=== PATIENT | male | born 1930 | race African-American/Black ===

== ENCOUNTER 2019-01-15 12:20 | Inpatient (IN) | payer OTHER ==
[2019-01-15 13:42] LABS: BASO % 0.8 % (0-2.0); EOS % 0.4 % (0-4.5); HEMATOCRIT 40.2 % (35.4-49); HEMOGLOBIN 13.5 GM/dL (11.7-16.9); LYMPH % 25.1 % (8-40); MCH 27.4 pg (25.7-33.7); MCHC 33.6 g/dl (32.0-35.9); MEAN CELL VOLUME 81.7 fl (80-96); MEAN PLT VOLUME 8.6 fl (7.5-11.1); MONO % 9.1 % (3.8-10.2); NEUT % 64.6 % (42.8-82.8); PLATELET COUNT 132 K/MM3 (134-434); RBC 4.92 M/mm3 (4.00-5.60); WHITE BLOOD COUNT 2.7 K/mm3 (4.0-10.0)
[2019-01-15 13:58] LABS: INR 1.06 (0.83-1.09); PROTHROMBIN TIME (PATIENT) 12.5 SEC (9.7-13.0)
[2019-01-15 14:01] LABS: ACTIVATED PTT 31.8 SECONDS (25.2-36.5)
[2019-01-15 14:15] LABS: ALBUMIN 3.6 g/dl (3.4-5.0); ALK PHOS 92 U/L (45-117); ANION GAP 6 MMOL/L (8-16); BILIRUBIN,TOTAL 0.4 mg/dL (0.2-1); BLOOD UREA NITROGEN 16.3 mg/dL (7-18); CALCIUM 8.5 mg/dL (8.5-10.1); CHLORIDE 105 mmol/L (98-107); CO2 29 mmol/L (21-32); CREATININE 1.4 mg/dL (0.55-1.3); GLUCOSE,RANDOM 78 mg/dL (74-106); MAGNESIUM 2.4 mg/dL (1.8-2.4); POTASSIUM 3.7 mmol/L (3.5-5.1); SGOT/AST 13 U/L (15-37); SGPT/ALT 15 U/L (13-61); SODIUM 141 mmol/L (136-145); TOT PROT 6.8 g/dl (6.4-8.2)
--- NOTE | 2019-01-15 14:45 | PDOC ---
History of Present Illness - General Chief Complaint: Pain Stated Complaint: ABD PAIN Time Seen by Provider: 01/15/19 13:20 History Source: Patient, Family (niece) Exam Limitations: No Limitations - History of Present Illness Initial Comments: 01/15/19 14:40 88 yo male pmh of HTN and dementia presents to the ED with 1 day of right sided abdominal pain. Pts niece is present and provides HPI and hx due to dementia. States pt had a complaint of warmth and R sided abdominal pain with deformity ( R abdomen enlarged) starting yesterday, described as weight, intermittent without know aggravating or relieving factors. States pt had an episode of loose stools 2 days ago, otherwise normal urinary and bowel habits. Pt is able to eat and drink as normal. Denies sick contacts, recent travel, recent illness , N/V, CP, SOB, back pain Past History - Past Medical History Allergies/Adverse Reactions: Allergies Allergy/AdvReac Type Severity Reaction Status Date / Time No Known Allergies Allergy Verified 01/15/19 12:41 Home Medications: Ambulatory Orders Amlodipine Besylate 10 mg PO DAILY 01/15/19 Clonidine HCl 0.1 mg PO TID 01/15/19 Docusate Sodium [Colace -] 100 mg PO BID 01/15/19 Donepezil HCl [Aricept -] 5 mg PO DAILY 01/15/19 Lisinopril [Prinivil -] 40 mg PO DAILY 01/15/19 Omeprazole 40 mg PO DAILY 01/15/19 COPD: No Dementia: Yes HTN: Yes Other medical history: abd hernia - Psycho Social/Smoking Cessation Hx Smoking History: Never smoked Have you smoked in the past 12 months: No Information on smoking cessation initiated: No Hx Alcohol Use: No Drug/Substance Use Hx: No Review of Systems - Review of Systems Constitutional: No: Chills, Fever Respiratory: No: Shortness of Breath Cardiac (ROS): No: Chest Pain, Edema ABD/GI: Yes: Abdominal Distended (on the right). No: Constipated, Diarrhea, Nausea, Vomiting : No: Burning, Dysuria, Flank Pain, Hematuria Integumentary: No: Change in Color Neurological: No: Numbness, Paresthesia, Weakness *Physical Exam - Vital Signs Last Vital Signs Temp Pulse Resp BP Pulse Ox 97.8 F 72 18 136/72 100 01/15/19 12:34 01/15/19 13:17 01/15/19 13:17 01/15/19 13:17 01/15/19 13:17 - Physical Exam General Appearance: Yes: Nourished, Appropriately Dressed. No: Apparent Distress HEENT: positive: EOMI Neck: positive: Supple. negative: Carotid bruit Respiratory/Chest: positive: Lungs Clear, Normal Breath Sounds. negative: Respiratory Distress, Accessory Muscle Use, Crackles, Rales, Rhonchi, Stridor, Wheezing Cardiovascular: positive: Regular Rhythm, Regular Rate, S1, S2. negative: Edema , JVD, Murmur Vascular Pulses: Dorsalis-Pedis (R): 4+, Doralis-Pedis (L): 4+ Gastrointestinal/Abdominal: positive: Flat, Soft, Distended (right side), Tenderness (RUQ). negative: Pulsatile Mass, Protuberent, Guarding, Rebound Musculoskeletal: negative: CVA Tenderness Extremity: positive: Normal Capillary Refill, Normal Inspection, Normal Range of Motion Integumentary: positive: Normal Color, Dry, Warm Neurologic: positive: Fully Oriented, Alert, Normal Mood/Affect, Normal Response ED Treatment Course - LABORATORY CBC & Chemistry Diagram: 01/16/19 07:30 01/16/19 07:30 - ADDITIONAL ORDERS Additional order review: Laboratory Results 01/15/19 01/15/19 01/15/19 13:20 13:20 13:20 PT with INR 12.50 INR 1.06 PTT (Actin FS) 31.8 Sodium 141 Potassium 3.7 Chloride 105 Carbon Dioxide 29 Anion Gap 6 L BUN 16.3 Creatinine 1.4 H Est GFR (CKD-EPI)AfAm 51.26 Est GFR (CKD-EPI)NonAf 44.23 Random Glucose 78 Lactic Acid Calcium 8.5 Magnesium 2.4 Total Bilirubin 0.4 AST 13 L ALT 15 Alkaline Phosphatase 92 Troponin I < 0.02 Total Protein 6.8 Albumin 3.6 Lipase 98 01/15/19 13:20 PT with INR INR PTT (Actin FS) Sodium Potassium Chloride Carbon Dioxide Anion Gap BUN Creatinine Est GFR (CKD-EPI)AfAm Est GFR (CKD-EPI)NonAf Random Glucose Lactic Acid 1.4 Calcium Magnesium Total Bilirubin AST ALT Alkaline Phosphatase Troponin I Total Protein Albumin Lipase 01/15/19 13:20 RBC 4.92 MCV 81.7 MCHC 33.6 RDW 14.0 MPV 8.6 Neutrophils % 64.6 Lymphocytes % 25.1 Monocytes % 9.1 Eosinophils % 0.4 Basophils % 0.8 Medical Decision Making - Medical Decision Making 01/15/19 19:34 88 yo male pmh of HTN and dementia presents to the ED with 1 day of right sided abdominal pain. Pts niece is present and provides HPI and hx due to dementia. States pt had a complaint of warmth and R sided abdominal pain with deformity ( R abdomen enlarged) starting yesterday, described as weight, intermittent without know aggravating or relieving factors. States pt had an episode of loose stools 2 days ago, otherwise normal urinary and bowel habits. Pt is able to eat and drink as normal. Denies sick contacts, recent travel, recent illness , N/V, CP, SOB, back pain Labs WNL DDX INLT: hernia, cholecystitis, hepatitis, gastric ulcer, diverticulitis CT shows hydrops gallbladder. GI consulted Dr. catrachita isaaco in the am and then determine if MRCP is necessary Pt accepted for admission Discharge - Discharge Information Problems reviewed: Yes Clinical Impression/Diagnosis: Dilated gallbladder Condition: Stable - Admission Yes - Follow up/Referral - Patient Discharge Instructions - Post Discharge Activity
[2019-01-15 16:31] LABS: URINE APPEARANCE CLEAR; URINE BILIRUBIN NEGATIVE (NEGATIVE); URINE COLOR YELLOW; URINE GLUCOSE (UA) NEGATIVE (NEGATIVE); URINE KETONE NEGATIVE (NEGATIVE); URINE LEUK ESTERASE NEGATIVE (NEGATIVE); URINE NITRITE NEGATIVE (NEGATIVE); URINE PROTEIN NEGATIVE (NEGATIVE)
--- NOTE | 2019-01-15 16:56 | PDOC ---
Documentation entered by Edilia Lerma SCRIBE, acting as scribe for Wade Kennedy MD. Wade Kenneyd MD: This documentation has been prepared by the cindyibe, Edilia Lerma SCRIBE, under my direction and personally reviewed by me in its entirety. I confirm that the documentation accurately reflects all work, treatment, procedures, and medical decision making performed by me. Attending Attestation - Resident Resident Name: Darius Shahid - ED Attending Attestation I have performed the following: I have examined & evaluated the patient, The case was reviewed & discussed with the resident, I agree w/resident's findings & plan, Exceptions are as noted - HPI HPI: 01/15/19 16:35 Patient is a 88 year old male with a significant PMH of HTN and dementia who presents to the emergency department with 1 day of right sided abdominal pain. Patient states he felt warmth, pain, and enlargement of his right abdomen. At this time, pt denies any pain, states he feels well and wants to go home. As per patients niece he had 2 episodes of loose non bloody stools 2 days ago, but a normal BM yesterday. She denies recent fevers, chills, headache, dizziness, focal weakness/numbness. She denies recent nausea, vomit, diarrhea or constipation. She denies recent dysuria, frequency, urgency or hematuria. She denies recent chest pain or shortness of breath. No treatments tried for the pain - Physicial Exam PE: 01/15/19 16:51 GENERAL: Awake, alert, and oriented to name and hospital in no acute distress. Very pleasant. EYES: PERRLA, EOMI, sclera anicteric, conjunctiva clear ENT: Nares patent, oropharynx clear without exudates. Moist mucosa NECK: Normal ROM, supple, no lymphadenopathy, JVD, or masses LUNGS: Breath sounds equal, clear to auscultation bilaterally. No wheezes, and no crackles HEART: Regular rate and rhythm, normal S1 and S2, no murmurs, rubs or gallops ABDOMEN: Soft, nontender, normoactive bowel sounds. No guarding, no rebound. No masses : No CVAT. No penile or testicular ttp, edema. EXTREMITIES: Normal range of motion, no edema. No cords, erythema, or tenderness. WWP. NEUROLOGICAL: Normal speech, cranial nerves intact, equal strength and sensation b/l SKIN: Warm, Dry, normal turgor, no rashes or lesions noted. - Medical Decision Making 01/15/19 16:53 88-year-old male presents to the emergency department with resolved right-sided abdominal pain. OTher than elevated BP (pt missed afternoon dose clonidine), vitals wnl. Pt took home dose clonidine in the ED. EKG with TWI, no previous EKG to compare. WIll check trop, but pt with no CP or SOB. Patient's exam is unremarkable, he has no abdominal tenderness to palpation. Given advanced age, will obtain labs, UA, and CT scan of the abdomen and pelvis to rule out any acute abdominal pathology. Will reassess. 01/15/19 18:53 CTAP with dilated GB and CBD MRCP recommended Pt reporting pain to RUQ Will order US, admit for further mgmt Heart Score/ECG Review #1 01/15/19 16:55 Twelve-lead EKG was performed and reviewed by me. Normal sinus rhythm, rate 71. Normal axis. No ST elevations. Inferior T wave inversions T wave inversions in V4 to V6. No previous EKG to compare.
--- NOTE | 2019-01-15 19:18 | PN ---
Teaching Attending Note Name of Resident: Kwaku Bonilla ATTENDING PHYSICIAN STATEMENT I saw and evaluated the patient. I reviewed the resident's note and discussed the case with the resident. I agree with the resident's findings and plan as documented. SUBJECTIVE: Patient is an 88 year old male with a PMH of HTN and Dementia who presents to the ER with 1 day of right sided abdominal pain. Patient states he felt warm, pain, and enlargement of his right abdomen. On arrival in the ER he denied any pain, states he feels well and wants to go home. As per patients niece he had 2 episodes of loose non bloody stools 2 days ago, but a normal BM yesterday. he denies recent fevers, chills, headache, dizziness, focal weakness/numbness. She denies recent nausea, vomiting, constipation, dysuria, frequency, urgency, hematuria, chest pain or shortness of breath. No treatments tried for the pain. Denies tobacco, alcohol or illicit drug use. FH of TIA. OBJECTIVE: Alert Vital Signs Period Temp Pulse Resp BP Sys/Garcia Pulse Ox Last 24 Hr 97.8 F 72-78 18-18 136-163/72-84 100-100 HEENT: No Jaundice, eye redness or discharge, PERRLA, EOMI. Normocephalic, atraumatic. External ears are normal and hearing is grossly intact. No nasal discharge. Neck: Supple, nontender. No palpable adenopathy or thyromegaly. No JVD Chest: Good effort. Clear to auscultation and percussion. Heart: Regular. No S3, rub or murmur Abdomen: Not distended, soft, nontender and no HSM. No rebound or guarding. Normal bowel sounds. Ext: Peripheral pulses intact. No leg edema. Skin: Warm and dry. No petechiae, rash or ecchymosis. Neuro: Alert. Oriented x3. CN 2-12 grossly intact. Sensation grossly intact in all four extremities and DTR are symmetric. Psych: Appropriate mood and affect. Good insight. Home Medications Medication Instructions Recorded Amlodipine Besylate 10 mg PO DAILY 01/15/19 Clonidine HCl 0.1 mg PO TID 01/15/19 Docusate Sodium [Colace -] 100 mg PO BID 01/15/19 Donepezil HCl [Aricept -] 5 mg PO DAILY 01/15/19 Lisinopril [Prinivil -] 40 mg PO DAILY 01/15/19 Omeprazole 40 mg PO DAILY 01/15/19 Abnormal Lab Results 01/15/19 01/15/19 13:20 13:20 WBC 2.7 L Plt Count 132 L Anion Gap 6 L Creatinine 1.4 H AST 13 L ASSESSMENT AND PLAN: 1. Chronic cholecystitis? - CT scan of the abdomen/pelvis with IV contrast showed dilated gallbladder and dilated intrahepatic bile ducts and nonobstructing left kidney stone. Patient's symptoms are chronic and there is no indication for antibiotics at this time. Will get MRCP and consult GI. EKG shows NSR and inferolateral t wave inversion - initial troponin is negative. Will repeat EKG and troponin to rule out ACS. Thrombocytopenia and leukopenia are unexplained - will repeat CBC. Will continue comprehensive care for all of patients comorbid conditions. 2. LEYDI - Cause unclear. Will hydrate gently and monitor urine output. Avoid nephrotoxic agents such as NSAIDS, aminoglycosides, contrast dyes and certain Alternative medicine products. 3. Hypertension - Restart suitable outpatient antihypertensive drugs when clinically appropriate. 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 Nonpharmacologic measures to control hypertension like weight loss , salt restriction and exercise discussed. Importance of adherence to treatment regimen and attainment of normotension emphasized. 4. DVT prophylaxis - Heparin 5000u sq tid. 5. Advance directives - Full code
[2019-01-15] MEDS ORDERED: SODIUM CHLORIDE 1,000 ML IV SCH (20:15)
[2019-01-15] MEDS ORDERED: HEPARIN NA (PORCINE) 5,000 UNITS/ML 1ML VIAL ONE (22:08)
[2019-01-15] MEDS: HEPARIN NA (PORCINE) 5,000 UNITS/ML 1ML VIAL SQ SCH (22:11)
--- NOTE | 2019-01-15 22:55 | HP ---
CHIEF COMPLAINT: Rt sided abd swelling PCP: Dr. Venus Bonilla ([phone]) HISTORY OF PRESENT ILLNESS: This is an 88 year old male with a PMH of HTN and Dementia who presents to the ER with 1 day of worsening right sided abdominal pain/distention. Hx given by the niece/aide at bedside. Pt has had a Rt sided swollen abdomen since earlier today but became "hard as a rock" and he felt warm , with pressure like pain. She states this has happened in past but it would go away once she switched his diet to vegetables because it helped move his bowels. Pt has not had BM in 2 days and niece is unaware if patient passed flatus recently. Pt was scheduled to see Dr. Bonilla in his office this AM. On arrival in the ER he denied any pain, states he feels well and wants to go home. As per patients niece he had 2 episodes of loose non bloody stools 2 days ago, but a normal BM yesterday. He denies recent fevers, chills, headache, dizziness, focal weakness/numbness. She denies recent nausea, vomiting, constipation, dysuria, frequency, urgency, hematuria, chest pain or shortness of breath. No treatments tried for the pain. Denies tobacco, alcohol or illicit drug use. FH of TIA. I placed a call to Dr. Bonilla regarding his patient and he awknowledged we could give him a call after 11:30 AM if we need more history on the patient. ER course was notable for: (1)CT abd pelvis- 8mm non-obstructing left renal lower pole stone w dilated lt renal pelvis likely extrarenal, borderline dilated hydrops gb with mild dilation of central intrahepatic ducts, borderline dilation of CBD and panc duct deadline dictation. (2)US- CBD diameter 8.5mm, no wall thickening or stones, bordrline distention of GB 8.7cm. (3)wbc- 2.7, PLT- 132, VS stable. EKG- nsr, inf TWI's V4-V6 trop negative Recent Travel: 6mths ago [place] Social History: Smoking: denies Alcohol: denies Drugs: denies Allergies No Known Allergies Allergy (Verified 01/15/19 12:41) HOME MEDICATIONS: Home Medications Medication Instructions Recorded Amlodipine Besylate 10 mg PO DAILY 01/15/19 Clonidine HCl 0.1 mg PO TID 01/15/19 Docusate Sodium [Colace -] 100 mg PO BID 01/15/19 Donepezil HCl [Aricept -] 5 mg PO DAILY 01/15/19 Lisinopril [Prinivil -] 40 mg PO DAILY 01/15/19 Omeprazole 40 mg PO DAILY 01/15/19 REVIEW OF SYSTEMS negative except above PHYSICAL EXAMINATION Vital Signs - 24 hr 01/15/19 01/15/19 12:34 13:17 Temperature 97.8 F Pulse Rate 78 Pulse Rate [ 72 Left Radial] Respiratory 18 18 Rate Blood Pressure 163/84 Blood Pressure 136/72 [Right Arm] O2 Sat by Pulse 100 100 Oximetry (%) GENERAL: pleasant in no acute distress, awake, alert HEAD: Normal with no signs of trauma. LUNGS: Breath sounds equal, clear to auscultation bilaterally. No wheezes, and no crackles. No accessory muscle use. HEART: Regular rate and rhythm, normal S1 and S2 without murmur, rub or gallop. ABDOMEN: Soft, mild grimace to deep palpation of Rt abd, minimal swelling on Right side, hypoactive bowel sounds, no guarding, no rebound, no masses. MUSCULOSKELETAL: Lt sided minimal CVA tenderness. LOWER EXTREMITIES: 2+ pulses, warm, well-perfused. No calf tenderness. No peripheral edema. PSYCHIATRIC: Appropriate mood and affect. Laboratory Results - last 24 hr 01/15/19 01/15/19 01/15/19 13:20 13:20 13:20 WBC 2.7 L RBC 4.92 Hgb 13.5 Hct 40.2 MCV 81.7 MCH 27.4 MCHC 33.6 RDW 14.0 Plt Count 132 L MPV 8.6 Absolute Neuts (auto) 1.7 Neutrophils % 64.6 Lymphocytes % 25.1 Monocytes % 9.1 Eosinophils % 0.4 Basophils % 0.8 Nucleated RBC % 0 PT with INR 12.50 INR 1.06 PTT (Actin FS) 31.8 Sodium Potassium Chloride Carbon Dioxide Anion Gap BUN Creatinine Est GFR (CKD-EPI)AfAm Est GFR (CKD-EPI)NonAf Random Glucose Lactic Acid 1.4 Calcium Magnesium Total Bilirubin AST ALT Alkaline Phosphatase Troponin I Total Protein Albumin Lipase Urine Color Urine Appearance Urine pH Ur Specific [place] Urine Protein Urine Glucose (UA) Urine Ketones Urine Blood Urine Nitrite Urine Bilirubin Urine Urobilinogen Ur Leukocyte Esterase 01/15/19 01/15/19 01/15/19 13:20 13:20 15:48 WBC RBC Hgb Hct MCV MCH MCHC RDW Plt Count MPV Absolute Neuts (auto) Neutrophils % Lymphocytes % Monocytes % Eosinophils % Basophils % Nucleated RBC % PT with INR INR PTT (Actin FS) Sodium 141 Potassium 3.7 Chloride 105 Carbon Dioxide 29 Anion Gap 6 L BUN 16.3 Creatinine 1.4 H Est GFR (CKD-EPI)AfAm 51.26 Est GFR (CKD-EPI)NonAf 44.23 Random Glucose 78 Lactic Acid Calcium 8.5 Magnesium 2.4 Total Bilirubin 0.4 AST 13 L ALT 15 Alkaline Phosphatase 92 Troponin I < 0.02 Total Protein 6.8 Albumin 3.6 Lipase 98 Urine Color Yellow Urine Appearance Clear Urine pH 7.0 Ur Specific [place] 1.011 Urine Protein Negative Urine Glucose (UA) Negative Urine Ketones Negative Urine Blood Negative Urine Nitrite Negative Urine Bilirubin Negative Urine Urobilinogen 1.0 Ur Leukocyte Esterase Negative ASSESSMENT/PLAN: This is an 88 year old male with a PMH of HTN and Dementia who presents to the ER with 1 day of worsening right sided abdominal pain/distention. Hx given by the niece/aide at bedside. Pt has had a Rt sided swollen abdomen since earlier today but became "hard as a rock" and he felt warm, with pressure like pain. # Hydrops GB -> 2/2 ?Chronic cholecystitis - CT scan of the abdomen/pelvis with IV contrast showed dilated gallbladder and dilated intrahepatic bile ducts and 8mm nonobstructing left kidney stone with dilation of left renal pelvis likely an extrarenal pelvis without gross evidence of left hydroureter, and moderate to large amount of fecal retention throughout colon, significant for constipation. - Patient's symptoms may be chronic - no indication for antibiotics at this time. - MRCP and consult GI (Dr. Littlejohn). - may need surgery consult but will let day team and GI decide. - pt constipated without BM in 2 days - senna 1 tab HS # ? Nephrolithiasis - nonobstructive at this time and could be extrarenal will wait for official read of CT - will not consult uro - UA negative - recommend citrate as a stone inhibitor - 24 hour urine to assess type of stone may be warranted - renal sono #TWI's shown on EKG - EKG shows NSR and inferolateral t wave inversion - initial troponin is negative. - Will repeat EKG and troponin in AM but doubt this is ACS given clinical picture. #Thrombocytopenia and leukopenia - unexplained at this time - per niece, denies any hx of blood disease or ever seeing a maintenance of way supervisor, no labs on record here to compare - can confirm with Dr. Bonilla in AM if rpt is not normalized. - will repeat CBC. #LEYDI -Cause unclear. - hydrate gently IV NS 42cc/hr - monitor urine output. - Avoid nephrotoxic agents such as NSAIDS, aminoglycosides, contrast dyes. #Hypertension - Restart suitable outpatient antihypertensive drugs. - recommend weight loss, salt restriction and exercise. DVT ppx: Hep 5K TID Visit type - Emergency Visit Emergency Visit: Yes ED Registration Date: 01/15/19 Care time: The patient presented to the Emergency Department on the above date and was hospitalized for further evaluation of their emergent condition. - New Patient This patient is new to me today: Yes Date on this admission: 01/17/19 - Critical Care Critical Care patient: No ATTENDING PHYSICIAN STATEMENT I saw and evaluated the patient. I reviewed the resident's note and discussed the case with the resident. I agree with the resident's findings and plan as documented. SUBJECTIVE: OBJECTIVE: ASSESSMENT AND PLAN:
[2019-01-16] MEDS: DEXTROSE 5%-NORMAL SALINE 1,000 ML IV SCH ×2 (00:07→15:31)
[2019-01-16 02:29] VITALS: BMI 23.6
[2019-01-16] MEDS ORDERED: SENNOSIDES 8.6MG TABLET (FP) PO ONE (04:08)
[2019-01-16] MEDS: HEPARIN NA (PORCINE) 5,000 UNITS/ML 1ML VIAL SQ SCH ×3 (05:42→21:54)
[2019-01-16 08:20] LABS: BASO % 0.6 % (0-2.0); EOS % 1.1 % (0-4.5); HEMATOCRIT 36.9 % (35.4-49); HEMOGLOBIN 12.5 GM/dL (11.7-16.9); LYMPH % 30.4 % (8-40); MCH 27.5 pg (25.7-33.7); MCHC 33.9 g/dl (32.0-35.9); MEAN CELL VOLUME 81.3 fl (80-96); MEAN PLT VOLUME 8.3 fl (7.5-11.1); MONO % 9.1 % (3.8-10.2); NEUT % 58.8 % (42.8-82.8); PLATELET COUNT 115 K/MM3 (134-434); RBC 4.54 M/mm3 (4.00-5.60); RDW 14.2 % (11.9-15.9); WHITE BLOOD COUNT 2.3 K/mm3 (4.0-10.0)
[2019-01-16 08:49] LABS: ALBUMIN 3.3 g/dl (3.4-5.0); ALK PHOS 83 U/L (45-117); ANION GAP 5 MMOL/L (8-16); BILIRUBIN,TOTAL 0.4 mg/dL (0.2-1); BLOOD UREA NITROGEN 14.5 mg/dL (7-18); CALCIUM 8.4 mg/dL (8.5-10.1); CHLORIDE 106 mmol/L (98-107); CO2 29 mmol/L (21-32); CREATININE 1.3 mg/dL (0.55-1.3); GLUCOSE,RANDOM 91 mg/dL (74-106); LIPASE 50 U/L (73-393); MAGNESIUM 2.3 mg/dL (1.8-2.4); POTASSIUM 3.7 mmol/L (3.5-5.1); SGOT/AST 8 U/L (15-37); SGPT/ALT 14 U/L (13-61); SODIUM 140 mmol/L (136-145); TOT PROT 6.1 g/dl (6.4-8.2)
[2019-01-16] MEDS ORDERED: PNEUMOC 13-VAL CONJ-DIP CRM/PF 0.5 ML DISP.SYRIN IM ONE (09:00)
[2019-01-16] MEDS ORDERED: FLU VACCINE QUAD 60 MCG/0.5 ML (MDV 19-20) IM ONE (09:00)
--- NOTE | 2019-01-16 10:42 | EKG ---
Test Reason : Blood Pressure : / mmHG Vent. Rate : 071 BPM Atrial Rate : 071 BPM P-R Int : 150 ms QRS Dur : 086 ms QT Int : 352 ms P-R-T Axes : 040 010 -33 degrees QTc Int : 382 ms NORMAL SINUS RHYTHM MINIMAL VOLTAGE CRITERIA FOR LVH, MAY BE NORMAL VARIANT SEPTAL INFARCT , AGE UNDETERMINED T WAVE ABNORMALITY, CONSIDER INFEROLATERAL ISCHEMIA ABNORMAL ECG NO PREVIOUS ECGS AVAILABLE Confirmed by KADY OROZCO, ONEAL ([id number]) on 01/16/2019 10:41:55 AM Referred By: Confirmed By:ONEAL HILLMAN MD
--- NOTE | 2019-01-16 11:30 | CONSULT ---
- Consultation REQUESTING PROVIDER: Marcelino OROZCO CONSULT REQUEST: We have been asked to surgically evaluate this patient for RUQ abdominal pain. PCP:Ryan Benson HISTORY OF PRESENT ILLNESS: CINTHYA who is an 88 y/o AAM who came to the hospital accompanied by his niece w/RUQ pain after eating yams and ??; he had been unable to move his bowels for 2 days and his " stomach was hard"; after a BM he felt better but he was brought to the ER nevertheless; he denies light stools/ dark urine; he has a h/o constipation; h/they cannot provide any other pertinent hx. PMHx: HTN/dementia PSHx: none lnown Home Medications Medication Instructions Recorded Amlodipine Besylate 10 mg PO DAILY 01/15/19 Clonidine HCl 0.1 mg PO TID 01/15/19 Docusate Sodium [Colace -] 100 mg PO BID 01/15/19 Donepezil HCl [Aricept -] 5 mg PO DAILY 01/15/19 Lisinopril [Prinivil -] 40 mg PO DAILY 01/15/19 Omeprazole 40 mg PO DAILY 01/15/19 Allergies Allergy/AdvReac Type Severity Reaction Status Date / Time No Known Allergies Allergy Verified 01/15/19 12:41 REVIEW OF SYSTEMS:canot answer accurately CONSTITUTIONAL: Absent: fever, chills, diaphoresis, generalized weakness, malaise, loss of appetite, weight change CARDIOVASCULAR: Absent: chest pain, syncope, palpitations, irregular heart rate, lightheadedness , peripheral edema RESPIRATORY: Absent: cough, shortness of breath, dyspnea with exertion, wheezing, stridor, hemoptysis GASTROINTESTINAL: Present: abdominal pain, abdominal distension, constipation. GENITOURINARY: Absent: dysuria, frequency, urgency, hesitancy, hematuria, flank pain, genital pain MUSCULOSKELETAL: Absent: myalgia, arthralgia, joint swelling, back pain, neck pain SKIN: Absent: rash, itching, pallor HEMATOLOGIC/IMMUNOLOGIC: Absent: easy bleeding, easy bruising, lymphadenopathy NEUROLOGIC: Absent: headache, focal weakness, paresthesias, dizziness, unsteady gait, seizure, mental status changes, bladder or bowel incontinence PSYCHIATRIC: Absent: anxiety, depression, suicidal or homicidal ideation, hallucinations. PHYSICAL EXAM: GENERAL: Awake, alert, and fully oriented, in no acute distress. HEAD: Normal with no signs of trauma. EYES: sclera anicteric, conjunctiva clear. NECK: Normal ROM, supple without lymphadenopathy, JVD, or masses. ABDOMEN: Soft, nontender, not distended, normoactive bowel sounds, no guarding, no rebound, no masses. No organomegaly. No hernias MUSCULOSKELETAL: Normal ROM at all joints. No bony deformities or tenderness. No CVA tenderness. UPPER EXTREMITIES: 2+ pulses, warm, well-perfused. No cyanosis. Cap refill <2 seconds. No peripheral edema. LOWER EXTREMITIES: 2+ pulses, warm, well-perfused. No calf tenderness. No peripheral edema. NEUROLOGICAL: Normal speech, gait not observed. PSYCH: Cooperative. Good eye contact. Appropriate mood and affect. SKIN: Warm, dry, normal turgor, no rashes or lesions noted. Vital Signs Temperature 97.9 F 01/16/19 02:15 Pulse Rate 60 01/16/19 05:56 Respiratory Rate 18 01/16/19 05:56 Blood Pressure 150/84 01/16/19 05:56 O2 Sat by Pulse Oximetry (%) 99 01/16/19 00:08 Lab Results WBC 2.3 K/mm3 (4.0-10.0) L 01/16/19 07:30 RBC 4.54 M/mm3 (4.00-5.60) 01/16/19 07:30 Hgb 12.5 GM/dL (11.7-16.9) 01/16/19 07:30 Hct 36.9 % (35.4-49) 01/16/19 07:30 MCV 81.3 fl (80-96) 01/16/19 07:30 MCHC 33.9 g/dl (32.0-35.9) 01/16/19 07:30 RDW 14.2 % (11.9-15.9) 01/16/19 07:30 Plt Count 115 K/MM3 (134-434) L 01/16/19 07:30 Sodium 140 mmol/L (136-145) 01/16/19 07:30 Potassium 3.7 mmol/L (3.5-5.1) 01/16/19 07:30 Chloride 106 mmol/L (98-107) 01/16/19 07:30 Carbon Dioxide 29 mmol/L (21-32) 01/16/19 07:30 Anion Gap 5 MMOL/L (8-16) L 01/16/19 07:30 BUN 14.5 mg/dL (7-18) 01/16/19 07:30 Creatinine 1.3 mg/dL (0.55-1.3) 01/16/19 07:30 Random Glucose 91 mg/dL (74-106) 01/16/19 07:30 Calcium 8.4 mg/dL (8.5-10.1) L 01/16/19 07:30 INR 1.06 (0.83-1.09) 01/15/19 13:20 Imaging w/u to date reviewed IMP: probable constipation and incidental biliary tract imaging findings. PLAN: Suggest biliary tract w/u for cause of incidental biliary tract imaging abnormalities and bowel regimen; will f/u. Alfredo Meade MD FACS
[2019-01-16] MEDS ORDERED: DONEPEZIL HCL 5 MG TABLET (FP) PO SCH (12:45)
--- NOTE | 2019-01-16 13:02 | CON.GU ---
Consult - History of Present Illness History of Present Illness: 88 yo male with no prior history. admitted for rt sided abd pain. CT shows nonobstructing 8mm LLP stone with an extrarenal pelvis. No voiding complaints - Alcohol/Substance Use Hx Alcohol Use: No - Smoking History Smoking history: Never smoked Have you smoked in the past 12 months: No Home Medications - Allergies Allergies/Adverse Reactions: Allergies Allergy/AdvReac Type Severity Reaction Status Date / Time No Known Allergies Allergy Verified 01/15/19 12:41 - Home Medications Home Medications: Ambulatory Orders Amlodipine Besylate 10 mg PO DAILY 01/15/19 Clonidine HCl 0.1 mg PO TID 01/15/19 Docusate Sodium [Colace -] 100 mg PO BID 01/15/19 Donepezil HCl [Aricept -] 5 mg PO DAILY 01/15/19 Lisinopril [Prinivil -] 40 mg PO DAILY 01/15/19 Omeprazole 40 mg PO DAILY 01/15/19 Review of Systems - Review of Systems Genitourinary: reports: No Symptoms Physical Exam- Vital Signs: Vital Signs Temperature 97.9 F 01/16/19 02:15 Pulse Rate 60 01/16/19 05:56 Respiratory Rate 18 01/16/19 05:56 Blood Pressure 150/84 01/16/19 05:56 O2 Sat by Pulse Oximetry (%) 99 01/16/19 00:08 Renal/: Yes: WNL Labs: CBC, BMP 01/16/19 07:30 01/16/19 07:30 Imaging - Results Cat Scan: Report Reviewed Problem List - Problems (1) Left renal stone Assessment/Plan: finding of stone is incidental. pt asymptomatic and no obstructioon noted. No intervention necessary. Outpt f/u Code(s): N20.0 - CALCULUS OF KIDNEY
[2019-01-16] MEDS: LISINOPRIL 20 MG TABLET (FP) PO SCH (13:12)
[2019-01-16] MEDS: cloNIDine HCL 0.1 MG TABLET PO SCH ×2 (13:13→21:54)
[2019-01-16] MEDS: DOCUSATE SODIUM 100 MG CAPSULE (FP) PO SCH ×2 (13:13→21:54)
[2019-01-16] MEDS: amLODIPine BESYLATE 10 MG TABLET (FP) PO SCH (13:13)
[2019-01-16] MEDS: PANTOPRAZOLE 40 MG TABLET PO SCH (13:13)
--- NOTE | 2019-01-16 15:24 | EKG ---
Test Reason : Blood Pressure : / mmHG Vent. Rate : 056 BPM Atrial Rate : 056 BPM P-R Int : 162 ms QRS Dur : 086 ms QT Int : 380 ms P-R-T Axes : 059 018 -32 degrees QTc Int : 366 ms SINUS BRADYCARDIA WITH PREMATURE ATRIAL COMPLEXES VOLTAGE CRITERIA FOR LEFT VENTRICULAR HYPERTROPHY CANNOT RULE OUT SEPTAL INFARCT (CITED ON OR BEFORE 15-JAN-2019) T WAVE ABNORMALITY, CONSIDER INFERIOR ISCHEMIA ABNORMAL ECG WHEN COMPARED WITH ECG OF 15-JAN-2019 13:16, PREMATURE ATRIAL COMPLEXES ARE NOW PRESENT SERIAL CHANGES OF SEPTAL INFARCT PRESENT Confirmed by ONEAL HILLMAN MD ([id number]) on 01/16/2019 3:24:10 PM [facility] Confirmed By:ONEAL HILLMAN MD
--- NOTE | 2019-01-16 16:38 | CONSULT ---
Consult Consult Specialty:: Nephrology Reason for Consultation:: Azotemia - History of Present Illness Chief Complaint: flank pain History of Present Illness: Pt is an 88 year old male with pmhx of htn and dementia who presents to the ER with right sided abd and flank pain. 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 He does have history of CKD. His niece did assist with history. He also complains of loose stools. He says that he feels better today. He denies dysuria or hematuria. He denies nsaid use. - History Source History Provided By: Patient - Past Medical History Cardio/Vascular: Yes: HTN Gastrointestinal: Yes: GERD Renal/: Yes: Renal Inusuff - Alcohol/Substance Use Hx Alcohol Use: No - Smoking History Smoking history: Never smoked Have you smoked in the past 12 months: No Home Medications - Allergies Allergies/Adverse Reactions: Allergies Allergy/AdvReac Type Severity Reaction Status Date / Time No Known Allergies Allergy Verified 01/15/19 12:41 - Home Medications Home Medications: Ambulatory Orders Amlodipine Besylate 10 mg PO DAILY 01/15/19 Clonidine HCl 0.1 mg PO TID 01/15/19 Docusate Sodium [Colace -] 100 mg PO BID 01/15/19 Donepezil HCl [Aricept -] 5 mg PO DAILY 01/15/19 Lisinopril [Prinivil -] 40 mg PO DAILY 01/15/19 Omeprazole 40 mg PO DAILY 01/15/19 Family Medical History Family History: Denies Review of Systems - Review of Systems Constitutional: reports: No Symptoms Eyes: reports: No Symptoms HENT: reports: No Symptoms Neck: reports: No Symptoms Cardiovascular: reports: No Symptoms Respiratory: reports: No Symptoms Gastrointestinal: reports: Abdominal Pain Genitourinary: reports: No Symptoms Musculoskeletal: reports: No Symptoms Integumentary: reports: No Symptoms Neurological: reports: No Symptoms Endocrine: reports: No Symptoms Hematology/Lymphatic: reports: No Symptoms Psychiatric: reports: No Symptoms Physical Exam Vital Signs: Vital Signs Temperature 97.5 F L 01/16/19 13:34 Pulse Rate 57 L 01/16/19 13:34 Respiratory Rate 18 01/16/19 13:34 Blood Pressure 174/81 H 01/16/19 13:34 O2 Sat by Pulse Oximetry (%) 99 01/16/19 00:08 Constitutional: Yes: Calm Eyes: Yes: Conjunctiva Clear HENT: Yes: Atraumatic Neck: Yes: Supple Cardiovascular: Yes: S1, S2 Respiratory: Yes: CTA Bilaterally Gastrointestinal: Yes: Soft Musculoskeletal: Yes: WNL Edema: No Neurological: Yes: Oriented Psychiatric: Yes: Oriented Labs: CBC, BMP 01/16/19 07:30 01/16/19 07:30 Laboratory Tests 01/15/19 01/15/19 01/16/19 13:20 15:48 07:30 Creatinine 1.4 H 1.3 Urine Protein Negative Urine Blood Negative Imaging - Results Cat Scan: Report Reviewed Problem List - Problems (1) HTN (hypertension) Code(s): I10 - ESSENTIAL (PRIMARY) HYPERTENSION (2) Dilated gallbladder Code(s): K82.8 - OTHER SPECIFIED DISEASES OF GALLBLADDER Assessment/Plan Current Medications Generic Name Dose Route Start Last Admin Trade Name Freq PRN Reason Stop Dose Admin Amlodipine Besylate 10 mg 01/16/19 12:45 01/16/19 13:13 Norvasc - PO 10 mg DAILY RAIN Administration Clonidine 0.1 mg 01/16/19 12:43 01/16/19 13:13 Catapres - PO 0.1 mg TID RAIN Administration Docusate Sodium 100 mg 01/16/19 12:45 01/16/19 13:13 Colace - PO 100 mg BID RAIN Administration Donepezil HCl 5 mg 01/16/19 22:00 Aricept - PO HS RAIN Heparin Sodium (Porcine) 5,000 unit 01/15/19 22:00 01/16/19 15:12 Heparin - SQ 5,000 unit TID RAIN Administration Dextrose/Sodium Chloride 1,000 mls @ 42 mls/hr 01/15/19 23:00 01/16/19 15:31 D5-Ns - IV 42 mls/hr ASDIR RAIN Administration Lisinopril 40 mg 01/16/19 12:45 01/16/19 13:12 Prinivil PO 40 mg DAILY RAIN Administration Pantoprazole Sodium 40 mg 01/16/19 12:45 01/16/19 13:13 Protonix - PO 40 mg DAILY RAIN Administration Impression 1. HTN 2. CKD 3. nephrlithiasis 4. dementia 5. abd pain Plan - change fluids to d5 1/2 ns while npo - repeat labs in am - monitor bp and add hydralazine if needed - pt follows with me in office
--- NOTE | 2019-01-16 17:32 | PN ---
Teaching Attending Note Name of Resident: Jane Sharpe ATTENDING PHYSICIAN STATEMENT I saw and evaluated the patient. I reviewed the resident's note and discussed the case with the resident. I agree with the resident's findings and plan as documented. SUBJECTIVE: Patient is an 88yom with pmhx of htn and dementia who presents to the ER with right sided abd and flank pain, loose stools. OBJECTIVE: Vital Signs Temperature 97.5 F L 01/16/19 13:34 Pulse Rate 57 L 01/16/19 13:34 Respiratory Rate 18 01/16/19 13:34 Blood Pressure 174/81 H 01/16/19 13:34 O2 Sat by Pulse Oximetry (%) 99 01/16/19 00:08 GENERAL: Awake, alert, and fully oriented, in no acute distress. HEAD: Normal with no signs of trauma. EYES: sclera anicteric, conjunctiva clear. NECK: Normal ROM, supple without lymphadenopathy, JVD, or masses. ABDOMEN: Soft, NT, ND, normoactive bowel sounds, no guarding, no rebound, no masses. MSC: Normal ROM at all joints. No bony deformities or tenderness. No CVA tenderness. EXTREMITIES: 2+ pulses, warm, well-perfused. No calf tenderness. No peripheral edema. NEUROLOGICAL: Normal speech, gait not observed. PSYCH: Cooperative. Good eye contact. Appropriate mood and affect. SKIN: Warm, dry, normal turgor, no rashes or lesions noted. CBCD WBC 2.3 K/mm3 (4.0-10.0) L 01/16/19 07:30 RBC 4.54 M/mm3 (4.00-5.60) 01/16/19 07:30 Hgb 12.5 GM/dL (11.7-16.9) 01/16/19 07:30 Hct 36.9 % (35.4-49) 01/16/19 07:30 MCV 81.3 fl (80-96) 01/16/19 07:30 MCHC 33.9 g/dl (32.0-35.9) 01/16/19 07:30 RDW 14.2 % (11.9-15.9) 01/16/19 07:30 Plt Count 115 K/MM3 (134-434) L 01/16/19 07:30 MPV 8.3 fl (7.5-11.1) 01/16/19 07:30 CMP Sodium 140 mmol/L (136-145) 01/16/19 07:30 Potassium 3.7 mmol/L (3.5-5.1) 01/16/19 07:30 Chloride 106 mmol/L (98-107) 01/16/19 07:30 Carbon Dioxide 29 mmol/L (21-32) 01/16/19 07:30 Anion Gap 5 MMOL/L (8-16) L 01/16/19 07:30 BUN 14.5 mg/dL (7-18) 01/16/19 07:30 Creatinine 1.3 mg/dL (0.55-1.3) 01/16/19 07:30 Random Glucose 91 mg/dL (74-106) 01/16/19 07:30 Calcium 8.4 mg/dL (8.5-10.1) L 01/16/19 07:30 Total Bilirubin 0.4 mg/dL (0.2-1) 01/16/19 07:30 AST 8 U/L (15-37) L 01/16/19 07:30 ALT 14 U/L (13-61) 01/16/19 07:30 Alkaline Phosphatase 83 U/L (45-117) 01/16/19 07:30 Total Protein 6.1 g/dl (6.4-8.2) L 01/16/19 07:30 Albumin 3.3 g/dl (3.4-5.0) L 01/16/19 07:30 CARDIAC ENZYMES Troponin I < 0.02 ng/ml (0.00-0.05) 01/16/19 07:30 Current Medications Generic Name Dose Route Start Last Admin Trade Name Silvia PRN Reason Stop Dose Admin Amlodipine Besylate 10 mg 01/16/19 12:45 01/16/19 13:13 Norvasc - PO 10 mg DAILY RAIN Administration Clonidine 0.1 mg 01/16/19 12:43 01/16/19 13:13 Catapres - PO 0.1 mg TID RAIN Administration Docusate Sodium 100 mg 01/16/19 12:45 01/16/19 13:13 Colace - PO 100 mg BID RAIN Administration Donepezil HCl 5 mg 01/16/19 22:00 Aricept - PO HS RAIN Heparin Sodium (Porcine) 5,000 unit 01/15/19 22:00 01/16/19 15:12 Heparin - SQ 5,000 unit TID RAIN Administration Dextrose/Sodium Chloride 1,000 mls @ 42 mls/hr 01/16/19 16:45 D5-1/2ns - IV ASDIR [facility] Lisinopril 40 mg 01/16/19 12:45 01/16/19 13:12 Prinivil PO 40 mg DAILY RAIN Administration Pantoprazole Sodium 40 mg 01/16/19 12:45 01/16/19 13:13 Protonix - PO 40 mg DAILY RAIN Administration Home Medications Medication Instructions Recorded Amlodipine Besylate 10 mg PO DAILY 01/15/19 Clonidine HCl 0.1 mg PO TID 01/15/19 Docusate Sodium [Colace -] 100 mg PO BID 01/15/19 Donepezil HCl [Aricept -] 5 mg PO DAILY 01/15/19 Lisinopril [Prinivil -] 40 mg PO DAILY 01/15/19 Omeprazole 40 mg PO DAILY 01/15/19 CT scan of the abdomen/pelvis : dilated gallbladder and dilated intrahepatic bile ducts and non-obstructing left kidney stone of 8mm ASSESSMENT AND PLAN: Pt is an 88 year old male with pmhx of htn and dementia who presents to the ER with right sided abdominal pain/flank pain. # dilated gallbladder and dilated bile duct with normal LFts , will get MRCP #Hydrophic Gallbladder on Ct of abdomen and pelvis measuring 8.5cm with Dilated CBD. # LEYDI over chronic 1.3 creatinine, will continue to monitor # Hypertension Uncontrolled : will add Hydralazine 10mg , continue home meds , will continue to monitor if needed further meds. DVT Px: Heparin sq
--- NOTE | 2019-01-16 17:57 | CON.GI ---
Consult Consult Specialty:: GI Referred by:: Hospitalist service Reason for Consultation:: dilated gallbladder and dilated bile duct - History of Present Illness Chief Complaint: Abdominal pain: history obtained from Niece and nephew History of Present Illness: 88M admitted for evaluation of "fullness and pressure in the right side of his abdomen". His family says that it looks normal now. They attribute this to him eating yam flour. CT scan revealed borderline dilated / hydrops gallbladder , dilated pancreatic duct of 4mm and mildly dilated central intrahepatic bile ducts and 7.5mm. andominal US revealed dilated gallbladder and CBD 8.5mm He has not had a bowel movement in three days per his family. There has been no change in his diet, weight loss. - History Source History Provided By: Family Member, Medical Record - Past Medical History [employer] WORK[employer]: Yes: Dementia Cardio/Vascular: Yes: HTN Gastrointestinal: Yes: GERD Renal/: Yes: Renal Inusuff - Alcohol/Substance Use Hx Alcohol Use: No History of Substance Use: reports: None - Smoking History Smoking history: Never smoked Have you smoked in the past 12 months: No - Social History Place of : Other ([place]) History of Recent Travel: No Home Medications - Allergies Allergies/Adverse Reactions: Allergies Allergy/AdvReac Type Severity Reaction Status Date / Time No Known Allergies Allergy Verified 01/15/19 12:41 - Home Medications Home Medications: Ambulatory Orders Amlodipine Besylate 10 mg PO DAILY 01/15/19 Clonidine HCl 0.1 mg PO TID 01/15/19 Docusate Sodium [Colace -] 100 mg PO BID 01/15/19 Donepezil HCl [Aricept -] 5 mg PO DAILY 01/15/19 Lisinopril [Prinivil -] 40 mg PO DAILY 01/15/19 Omeprazole 40 mg PO DAILY 01/15/19 Family Medical History Other Family History: No family history of colorectal cancer, liver disease Review of Systems - Review of Systems Constitutional: denies: Fever Cardiovascular: denies: Chest Pain Respiratory: denies: SOB Gastrointestinal: reports: Bloating, Constipation. denies: Abdominal Pain Physical Exam-GI Vital Signs: Vital Signs Temperature 97.5 F L 01/16/19 13:34 Pulse Rate 57 L 01/16/19 13:34 Respiratory Rate 18 01/16/19 13:34 Blood Pressure 174/81 H 01/16/19 13:34 O2 Sat by Pulse Oximetry (%) 99 01/16/19 00:08 Constitutional: Yes: Calm Eyes: No: Sclera Icterus Cardiovascular: Yes: Regular Rate and Rhythm Respiratory: Yes: CTA Bilaterally Gastrointestinal Inspection: Yes: Other (rectus diastasis) ...Auscultate: Yes: Normoactive Bowel Sounds ...Palpate: Yes: Soft. No: Hepatomegaly, Splenomegaly, Tenderness ...Percussion: No: Tympanitic Edema: No (No LE edema) Neurological: Yes: Alert Psychiatric: Yes: Alert Labs: CBC, BMP 01/16/19 07:30 01/16/19 07:30 INR, PTT INR 1.06 (0.83-1.09) 01/15/19 13:20 Hepatic Panel Total Bilirubin 0.4 mg/dL (0.2-1) 01/16/19 07:30 AST 8 U/L (15-37) L 01/16/19 07:30 ALT 14 U/L (13-61) 01/16/19 07:30 Alkaline Phosphatase 83 U/L (45-117) 01/16/19 07:30 Albumin 3.3 g/dl (3.4-5.0) L 01/16/19 07:30 Imaging - Results Cat Scan: Report Reviewed, Image Reviewed Problem List - Problems (1) Dilated gallbladder Assessment/Plan: Currently asymptomatic. Mlldly dilated biliary tract as well along with pancreatic duct. Liver chmistries are not suggestive of biliary obstruction. ? if physiologic in nature. Advise: Surgical opinion regarding distended GB MRCP to further evaluate biliary tract. If unable to be performed, Endoscopic ultrasound to evaluate ampulla and CBD / pancreas further depending on wishes of patient's family. Code(s): K82.8 - OTHER SPECIFIED DISEASES OF GALLBLADDER
--- NOTE | 2019-01-16 18:15 | PN ---
Physical Exam: SUBJECTIVE: Patient seen and examined. He currently denies abdominal pain or nausea. Pt's niece reports pt drank a cornstarch-like powder mixed in water when it should have been heated about 5-6 days ago. He has been constipated for at least 3 days. OBJECTIVE: Vital Signs Period Temp Pulse Resp BP Sys/Garcia Pulse Ox Last 24 Hr 97.5 F-98.3 F 57-70 18-18 143-174/77-92 99-100 GENERAL: The patient is awake and alert, in no acute distress. Very pleasant. HEAD: Normal with no signs of trauma. EYES: PERRL, extraocular movements intact, sclera anicteric, conjunctiva clear. No ptosis. ENT: Ears normal, nares patent, moist mucous membranes. NECK: Trachea midline, full range of motion LUNGS: Clear to auscultation bilaterally, no wheezes HEART: Regular rate and rhythm, S1, S2 without murmur, rub or gallop. ABDOMEN: Generalized tenderness on palpation, left side distended, hypoactive bowel sounds, guarding epigastric and LUQ EXTREMITIES: Warm, well-perfused, no edema. NEUROLOGICAL: Cranial nerves II through XII grossly intact. Normal speech PSYCH: Normal mood, normal affect. SKIN: Warm, dry, normal turgor Laboratory Results - last 24 hr 01/16/19 01/16/19 07:30 07:30 WBC 2.3 L RBC 4.54 Hgb 12.5 Hct 36.9 MCV 81.3 MCH 27.5 MCHC 33.9 RDW 14.2 Plt Count 115 L MPV 8.3 Absolute Neuts (auto) 1.4 L Neutrophils % 58.8 Lymphocytes % 30.4 D Monocytes % 9.1 Eosinophils % 1.1 D Basophils % 0.6 Nucleated RBC % 0 Sodium 140 Potassium 3.7 Chloride 106 Carbon Dioxide 29 Anion Gap 5 L BUN 14.5 Creatinine 1.3 Est GFR (CKD-EPI)AfAm 56.07 Est GFR (CKD-EPI)NonAf 48.38 Random Glucose 91 Calcium 8.4 L Phosphorus 4.0 Magnesium 2.3 Total Bilirubin 0.4 AST 8 L ALT 14 Alkaline Phosphatase 83 Troponin I < 0.02 Total Protein 6.1 L Albumin 3.3 L Lipase 50 L Active Medications Generic Name Dose Route Start Last Admin Trade Name Freq PRN Reason Stop Dose Admin Amlodipine Besylate 10 mg 01/16/19 12:45 01/16/19 13:13 Norvasc - PO 10 mg DAILY RAIN Administration Clonidine 0.1 mg 01/16/19 12:43 01/16/19 13:13 Catapres - PO 0.1 mg TID RAIN Administration Docusate Sodium 100 mg 01/16/19 12:45 01/16/19 13:13 Colace - PO 100 mg BID RAIN Administration Donepezil HCl 5 mg 01/16/19 22:00 Aricept - PO HS RAIN Heparin Sodium (Porcine) 5,000 unit 01/15/19 22:00 01/16/19 15:12 Heparin - SQ 5,000 unit TID RAIN Administration Dextrose/Sodium Chloride 1,000 mls @ 42 mls/hr 01/16/19 16:45 D5-1/2ns - IV ASDIR RAIN Lisinopril 40 mg 01/16/19 12:45 01/16/19 13:12 Prinivil PO 40 mg DAILY RAIN Administration Pantoprazole Sodium 40 mg 01/16/19 12:45 01/16/19 13:13 Protonix - PO 40 mg DAILY RAIN Administration Polyethylene Glycol 17 gm 01/16/19 22:00 Miralax (For Daily Use) - PO BID RAIN ASSESSMENT/PLAN: Mr. Nigel Miller is an 88y/o male with a HTN, GERD, dementia, and constipation who presents to the ER with 1 day of worsening right sided abdominal pain/ distention. #abdominal pain constipation vs chronic cholecystitis -GI following #left renal stone incidental finding on imaging, asymptomatic -urology- can f/u outpt #LEYDI, improved -renal following (Dr. Sharma)- add hydralazine if needed for HTN #HTN -lisinopril, clonidine -add hydralazine if needed #dementia -continue home meds DVT Ppx heparin FEN clear liquids monitor labs dispo med/surg Visit type - Emergency Visit Emergency Visit: Yes ED Registration Date: 01/15/19 Care time: The patient presented to the Emergency Department on the above date and was hospitalized for further evaluation of their emergent condition. - New Patient This patient is new to me today: Yes Date on this admission: 01/16/19 - Critical Care Critical Care patient: No - Discharge Referral Referred to [facility] Med P.C.: No ATTENDING PHYSICIAN STATEMENT I saw and evaluated the patient. I reviewed the resident's note and discussed the case with the resident. I agree with the resident's findings and plan as documented. SUBJECTIVE: OBJECTIVE: ASSESSMENT AND PLAN:
[2019-01-16] MEDS: DONEPEZIL HCL 5 MG TABLET (FP) PO SCH (21:54)
[2019-01-16] MEDS: DEXTROSE 5%-0.45% SALINE 1,000 ML IV SCH (22:09)
[2019-01-16] MEDS: POLYETHYLENE GLYCOL 3350 119 GM BTL PO SCH (22:14)
[2019-01-17] MEDS: cloNIDine HCL 0.1 MG TABLET PO SCH ×3 (05:24→21:21)
[2019-01-17] MEDS: HEPARIN NA (PORCINE) 5,000 UNITS/ML 1ML VIAL SQ SCH ×3 (05:24→21:21)
[2019-01-17 08:51] LABS: HEMATOCRIT 39.3 % (35.4-49); HEMOGLOBIN 13.2 GM/dL (11.7-16.9); MCH 27.5 pg (25.7-33.7); MCHC 33.6 g/dl (32.0-35.9); MEAN CELL VOLUME 81.6 fl (80-96); MEAN PLT VOLUME 8.7 fl (7.5-11.1); PLATELET COUNT 112 K/MM3 (134-434); RBC 4.82 M/mm3 (4.00-5.60); RDW 14.2 % (11.9-15.9); WHITE BLOOD COUNT 2.5 K/mm3 (4.0-10.0)
[2019-01-17 09:30] LABS: ALBUMIN 3.5 g/dl (3.4-5.0); BILIRUBIN,TOTAL 0.5 mg/dL (0.2-1); BLOOD UREA NITROGEN 11.8 mg/dL (7-18); CALCIUM 8.9 mg/dL (8.5-10.1); CREATININE 1.3 mg/dL (0.55-1.3); MAGNESIUM 2.3 mg/dL (1.8-2.4); PHOSPHOROUS 3.9 mg/dL (2.5-4.9); POTASSIUM 3.8 mmol/L (3.5-5.1); TOT PROT 6.5 g/dl (6.4-8.2)
[2019-01-17] MEDS: DOCUSATE SODIUM 100 MG CAPSULE (FP) PO SCH ×2 (10:11→21:21)
[2019-01-17] MEDS: PANTOPRAZOLE 40 MG TABLET PO SCH (10:11)
[2019-01-17] MEDS: amLODIPine BESYLATE 10 MG TABLET (FP) PO SCH (10:11)
[2019-01-17] MEDS: POLYETHYLENE GLYCOL 3350 119 GM BTL PO SCH ×2 (10:11→21:21)
[2019-01-17] MEDS: hydrALAZINE HCL 10 MG TABLET PO SCH (10:11)
[2019-01-17] MEDS: LISINOPRIL 20 MG TABLET (FP) PO SCH (10:11)
--- NOTE | 2019-01-17 13:00 | PN.GI ---
GI Progress Note Subjective: No acute events No abdominal pain MRCP not performed as of yet No abdominal pain - Objective Vital Signs: Vital Signs Temperature 98.0 F 01/17/19 08:26 Pulse Rate 65 01/17/19 08:26 Respiratory Rate 16 01/17/19 08:26 Blood Pressure 148/74 01/17/19 08:26 O2 Sat by Pulse Oximetry (%) 95 01/17/19 09:00 Constitutional: Calm Eyes: No: Sclera Icterus Cardiovascular: Yes: Regular Rate and Rhythm Respiratory: Yes: CTA Bilaterally Gastrointestinal Inspection: No: Distention ...Auscultate: Yes: Normoactive Bowel Sounds ...Palpate: Yes: Soft. No: Hepatomegaly, Splenomegaly, Tenderness Edema: No (No LE edema) Neurological: Yes: Alert Labs: CBC, BMP 01/17/19 07:00 01/17/19 07:00 INR, PTT INR 1.06 (0.83-1.09) 01/15/19 13:20 Hepatic Panel Total Bilirubin 0.5 mg/dL (0.2-1) 01/17/19 07:00 AST 10 U/L (15-37) L 01/17/19 07:00 ALT 15 U/L (13-61) 01/17/19 07:00 Alkaline Phosphatase 91 U/L (45-117) 01/17/19 07:00 Albumin 3.5 g/dl (3.4-5.0) 01/17/19 07:00 Problem List - Problems (1) Dilated gallbladder Assessment/Plan: Asymptomatic Patient evaluated by surgery. No surgical interventions and advised bowel regimen Awaiting MRCP to evaluate biliary tract dilatation Advance diet Code(s): K82.8 - OTHER SPECIFIED DISEASES OF GALLBLADDER (2) Constipation Assessment/Plan: MiraLAX 17g BID Mineral oil enema Code(s): K59.00 - CONSTIPATION, UNSPECIFIED
[2019-01-17] MEDS ORDERED: MINERAL OIL ENEMA 133 ML ENEMA PR ONE (13:45)
--- NOTE | 2019-01-17 15:43 | PN ---
Progress Note, Physician History of Present Illness: Pt seen and examined at bedside. No complaints today. - Current Medication List Current Medications: Active Medications Amlodipine Besylate (Norvasc -) 10 mg PO DAILY [facility] Last Admin: 01/17/19 10:11 Dose: 10 mg Clonidine (Catapres -) 0.1 mg PO TID [facility] Last Admin: 01/17/19 13:22 Dose: 0.1 mg Docusate Sodium (Colace -) 100 mg PO BID [facility] Last Admin: 01/17/19 10:11 Dose: 100 mg Donepezil HCl (Aricept -) 5 mg PO HS [facility] Last Admin: 01/16/19 21:54 Dose: 5 mg Heparin Sodium (Porcine) (Heparin -) 5,000 unit SQ TID [facility] Last Admin: 01/17/19 13:22 Dose: 5,000 unit Hydralazine HCl (Apresoline -) 10 mg PO DAILY [facility] Last Admin: 01/17/19 10:11 Dose: 10 mg Dextrose/Sodium Chloride (D5-1/2ns -) 1,000 mls @ 42 mls/hr IV ASDIR [facility] Last Admin: 01/16/19 22:09 Dose: 42 mls/hr Lisinopril (Prinivil) 40 mg PO DAILY [facility] Last Admin: 01/17/19 10:11 Dose: 40 mg Pantoprazole Sodium (Protonix -) 40 mg PO DAILY [facility] Last Admin: 01/17/19 10:11 Dose: 40 mg Polyethylene Glycol (Miralax (For Daily Use) -) 17 gm PO BID [facility] Last Admin: 01/17/19 10:11 Dose: 17 gm - Objective Vital Signs: Vital Signs Temperature 97.6 F 01/17/19 13:33 Pulse Rate 63 01/17/19 13:33 Respiratory Rate 18 01/17/19 13:33 Blood Pressure 144/75 01/17/19 13:33 O2 Sat by Pulse Oximetry (%) 95 01/17/19 09:00 Constitutional: Yes: Calm Eyes: Yes: Conjunctiva Clear HENT: Yes: Atraumatic Neck: Yes: Supple Cardiovascular: Yes: S1, S2 Respiratory: Yes: CTA Bilaterally Gastrointestinal: Yes: Soft Genitourinary: Yes: WNL Musculoskeletal: Yes: WNL Edema: No Neurological: Yes: Confusion Labs: CBC, BMP 01/17/19 07:00 01/17/19 07:00 INR, PTT INR 1.06 (0.83-1.09) 01/15/19 13:20 Problem List - Problems (1) HTN (hypertension) Code(s): I10 - ESSENTIAL (PRIMARY) HYPERTENSION (2) Dilated gallbladder Code(s): K82.8 - OTHER SPECIFIED DISEASES OF GALLBLADDER Assessment/Plan Current Medications Generic Name Dose Route Start Last Admin Trade Name Freq PRN Reason Stop Dose Admin Amlodipine Besylate 10 mg 01/16/19 12:45 01/17/19 10:11 Norvasc - PO 10 mg DAILY RAIN Administration Clonidine 0.1 mg 01/16/19 12:43 01/17/19 13:22 Catapres - PO 0.1 mg TID RAIN Administration Docusate Sodium 100 mg 01/16/19 12:45 01/17/19 10:11 Colace - PO 100 mg BID RAIN Administration Donepezil HCl 5 mg 01/16/19 22:00 01/16/19 21:54 Aricept - PO 5 mg HS RANI Administration Heparin Sodium (Porcine) 5,000 unit 01/15/19 22:00 01/17/19 13:22 Heparin - SQ 5,000 unit TID RAIN Administration Hydralazine HCl 10 mg 01/17/19 10:00 01/17/19 10:11 Apresoline - PO 10 mg DAILY RAIN Administration Dextrose/Sodium Chloride 1,000 mls @ 42 mls/hr 01/16/19 16:45 01/16/19 22:09 D5-1/2ns - IV 42 mls/hr ASDIR RAIN Administration Lisinopril 40 mg 01/16/19 12:45 01/17/19 10:11 Prinivil PO 40 mg DAILY RAIN Administration Pantoprazole Sodium 40 mg 01/16/19 12:45 01/17/19 10:11 Protonix - PO 40 mg DAILY RAIN Administration Polyethylene Glycol 17 gm 01/16/19 22:00 01/17/19 10:11 Miralax (For Daily Use) - PO 17 gm BID RAIN Administration Impression 1. HTN 2. CKD 3. nephrlithiasis 4. dementia 5. abd pain Plan - renal funciton is stable - can see in office - cont yuridia - fluids while NPO - bp stable - will follow prn
[2019-01-17] MEDS: DEXTROSE 5%-0.45% SALINE 1,000 ML IV SCH (16:08)
--- NOTE | 2019-01-17 18:26 | PN ---
Physical Exam: SUBJECTIVE: Patient seen and examined. He denies abdominal pain and reports his abdomen feels softer. He denies chest pain, shortness of breath, nausea, vomiting. No BM. OBJECTIVE: Vital Signs Period Temp Pulse Resp BP Sys/Garcia Pulse Ox Last 24 Hr 97.6 F-98.1 F 58-69 16-18 144-194/74-94 95-95 GENERAL: The patient is awake and alert, in no acute distress. HEAD: Normal with no signs of trauma. EYES: PERRL, extraocular movements intact, conjunctiva clear. ENT: Ears normal, nares patent, moist mucous membranes. NECK: Trachea midline, full range of motion LUNGS: Clear to auscultation bilaterally, no wheezes HEART: Regular rate and rhythm, no murmur ABDOMEN: Non-tender on palpation, left side distended, hypoactive bowel sounds, no guarding RECTAL: No masses or blood noted, small amount of soft stool present on end of glove EXTREMITIES: Warm, well-perfused, no edema. NEUROLOGICAL: Cranial nerves II through XII grossly intact. Normal speech PSYCH: Normal mood, normal affect. SKIN: Warm, dry, normal turgor Laboratory Results - last 24 hr 01/17/19 01/17/19 07:00 07:00 WBC 2.5 L RBC 4.82 Hgb 13.2 Hct 39.3 MCV 81.6 MCH 27.5 MCHC 33.6 RDW 14.2 Plt Count 112 L MPV 8.7 Sodium 139 Potassium 3.8 Chloride 104 Carbon Dioxide 29 Anion Gap 6 L BUN 11.8 Creatinine 1.3 Est GFR (CKD-EPI)AfAm 56.07 Est GFR (CKD-EPI)NonAf 48.38 Random Glucose 94 Calcium 8.9 Phosphorus 3.9 Magnesium 2.3 Total Bilirubin 0.5 AST 10 L ALT 15 Alkaline Phosphatase 91 Total Protein 6.5 Albumin 3.5 Active Medications Generic Name Dose Route Start Last Admin Trade Name Freq PRN Reason Stop Dose Admin Amlodipine Besylate 10 mg 01/16/19 12:45 01/17/19 10:11 Norvasc - PO 10 mg DAILY RAIN Administration Clonidine 0.1 mg 01/16/19 12:43 01/17/19 13:22 Catapres - PO 0.1 mg TID RAIN Administration Docusate Sodium 100 mg 01/16/19 12:45 01/17/19 10:11 Colace - PO 100 mg BID RAIN Administration Donepezil HCl 5 mg 01/16/19 22:00 01/16/19 21:54 Aricept - PO 5 mg HS RAIN Administration Heparin Sodium (Porcine) 5,000 unit 01/15/19 22:00 01/17/19 13:22 Heparin - SQ 5,000 unit TID RAIN Administration Hydralazine HCl 10 mg 01/17/19 10:00 01/17/19 10:11 Apresoline - PO 10 mg DAILY RAIN Administration Dextrose/Sodium Chloride 1,000 mls @ 42 mls/hr 01/16/19 16:45 01/17/19 16:08 D5-1/2ns - IV Not Given ASDIR RAIN Lisinopril 40 mg 01/16/19 12:45 01/17/19 10:11 Prinivil PO 40 mg DAILY RAIN Administration Pantoprazole Sodium 40 mg 01/16/19 12:45 01/17/19 10:11 Protonix - PO 40 mg DAILY RAIN Administration Polyethylene Glycol 17 gm 01/16/19 22:00 01/17/19 10:11 Miralax (For Daily Use) - PO 17 gm BID RAIN Administration ASSESSMENT/PLAN: Mr. Nigel Miller is an 88y/o male with a HTN, GERD, dementia, and constipation who presents to the ER with 1 day of worsening right sided abdominal pain/ distention. #abdominal pain constipation vs chronic cholecystitis -CT showed distended gallbladder and dilated bile ducts -MRCP -bowel regimen -GI following #left renal stone incidental finding on imaging, asymptomatic -urology- can f/u outpt #LEYDI, improved -nephrology- sees Dr. Sharma out patient #HTN -lisinopril, clonidine, amlodipine -add hydralazine 10mg #dementia -continue home meds, donepezil AM DVT Ppx heparin FEN D5-1/2NS 42mL/hr clear liquids monitor labs dispo med/surg Visit type - Emergency Visit Emergency Visit: Yes ED Registration Date: 01/15/19 Care time: The patient presented to the Emergency Department on the above date and was hospitalized for further evaluation of their emergent condition. - New Patient This patient is new to me today: No - Critical Care Critical Care patient: No - Discharge Referral Referred to [facility] Med P.C[facility] No ATTENDING PHYSICIAN STATEMENT I saw and evaluated the patient. I reviewed the resident's note and discussed the case with the resident. I agree with the resident's findings and plan as documented. SUBJECTIVE: OBJECTIVE: ASSESSMENT AND PLAN:
--- NOTE | 2019-01-17 19:46 | PN ---
Teaching Attending Note Name of Resident: Jane Sharpe ATTENDING PHYSICIAN STATEMENT I saw and evaluated the patient. I reviewed the resident's note and discussed the case with the resident. I agree with the resident's findings and plan as documented. SUBJECTIVE: Patient is an 88yom with pmhx of htn and dementia who presents to the ER with right sided abd and flank pain, loose stools. He says that he feels better today. OBJECTIVE: Vital Signs Temperature 97.6 F 01/17/19 13:33 Pulse Rate 63 01/17/19 13:33 Respiratory Rate 18 01/17/19 13:33 Blood Pressure 144/75 01/17/19 13:33 O2 Sat by Pulse Oximetry (%) 95 01/17/19 09:00 GENERAL: Awake, alert, and fully oriented, in no acute distress. HEAD: Normal with no signs of trauma. EYES: sclera anicteric, conjunctiva clear. NECK: Normal ROM, supple without lymphadenopathy, JVD, or masses. ABDOMEN: Soft, NT, ND, normoactive bowel sounds, no guarding, no rebound, no masses. MSC: Normal ROM at all joints. No bony deformities or tenderness. No CVA tenderness. EXTREMITIES: 2+ pulses, warm, well-perfused. No calf tenderness. No peripheral edema. NEUROLOGICAL: Normal speech, gait not observed. PSYCH: Cooperative. Good eye contact. Appropriate mood and affect. SKIN: Warm, dry, normal turgor, no rashes or lesions noted. CBCD CBCD WBC 2.5 K/mm3 (4.0-10.0) L 01/17/19 07:00 RBC 4.82 M/mm3 (4.00-5.60) 01/17/19 07:00 Hgb 13.2 GM/dL (11.7-16.9) 01/17/19 07:00 Hct 39.3 % (35.4-49) 01/17/19 07:00 MCV 81.6 fl (80-96) 01/17/19 07:00 MCHC 33.6 g/dl (32.0-35.9) 01/17/19 07:00 RDW 14.2 % (11.9-15.9) 01/17/19 07:00 Plt Count 112 K/MM3 (134-434) L 01/17/19 07:00 MPV 8.7 fl (7.5-11.1) 01/17/19 07:00 CMP Sodium 139 mmol/L (136-145) 01/17/19 07:00 Potassium 3.8 mmol/L (3.5-5.1) 01/17/19 07:00 Chloride 104 mmol/L (98-107) 01/17/19 07:00 Carbon Dioxide 29 mmol/L (21-32) 01/17/19 07:00 Anion Gap 6 MMOL/L (8-16) L 01/17/19 07:00 BUN 11.8 mg/dL (7-18) 01/17/19 07:00 Creatinine 1.3 mg/dL (0.55-1.3) 01/17/19 07:00 Random Glucose 94 mg/dL (74-106) 01/17/19 07:00 Calcium 8.9 mg/dL (8.5-10.1) 01/17/19 07:00 Total Bilirubin 0.5 mg/dL (0.2-1) 01/17/19 07:00 AST 10 U/L (15-37) L 01/17/19 07:00 ALT 15 U/L (13-61) 01/17/19 07:00 Alkaline Phosphatase 91 U/L (45-117) 01/17/19 07:00 Total Protein 6.5 g/dl (6.4-8.2) 01/17/19 07:00 Albumin 3.5 g/dl (3.4-5.0) 01/17/19 07:00 CARDIAC ENZYMES Troponin I < 0.02 ng/ml (0.00-0.05) 01/16/19 07:30 Current Medications Generic Name Dose Route Start Last Admin Trade Name Silvia PRN Reason Stop Dose Admin Amlodipine Besylate 10 mg 01/16/19 12:45 01/17/19 10:11 Norvasc - PO 10 mg DAILY RAIN Administration Clonidine 0.1 mg 01/16/19 12:43 01/17/19 13:22 Catapres - PO 0.1 mg TID RAIN Administration Docusate Sodium 100 mg 01/16/19 12:45 01/17/19 10:11 Colace - PO 100 mg BID RAIN Administration Donepezil HCl 5 mg 01/16/19 22:00 01/16/19 21:54 Aricept - PO 5 mg HS RAIN Administration Heparin Sodium (Porcine) 5,000 unit 01/15/19 22:00 01/17/19 13:22 Heparin - SQ 5,000 unit TID RAIN Administration Hydralazine HCl 10 mg 01/17/19 10:00 01/17/19 10:11 Apresoline - PO 10 mg DAILY RAIN Administration Dextrose/Sodium Chloride 1,000 mls @ 42 mls/hr 01/16/19 16:45 01/17/19 16:08 D5-1/2ns - IV Not Given ASDIR RAIN Lisinopril 40 mg 01/16/19 12:45 01/17/19 10:11 Prinivil PO 40 mg DAILY RAIN Administration Pantoprazole Sodium 40 mg 01/16/19 12:45 01/17/19 10:11 Protonix - PO 40 mg DAILY RAIN Administration Polyethylene Glycol 17 gm 01/16/19 22:00 01/17/19 10:11 Miralax (For Daily Use) - PO 17 gm BID RAIN Administration Home Medications Medication Instructions Recorded Amlodipine Besylate 10 mg PO DAILY 01/15/19 Clonidine HCl 0.1 mg PO TID 01/15/19 Docusate Sodium [Colace -] 100 mg PO BID 01/15/19 Donepezil HCl [Aricept -] 5 mg PO DAILY 01/15/19 Lisinopril [Prinivil -] 40 mg PO DAILY 01/15/19 Omeprazole 40 mg PO DAILY 01/15/19 CT scan of the abdomen/pelvis : dilated gallbladder and dilated intrahepatic bile ducts and nonobstructing left kidney stone of 8mm MRI of the abdomen: slight gallbladder overdistention , trace amount of adjacent free fluid is seen. CBD is 1.2cm in diameter, no evidence of choledocholithiasis, the main pancreatic duct is slightely dilated 3.4mm diameter. ASSESSMENT AND PLAN: Pt is an 88 year old male with pmhx of htn and dementia who presents to the ER with right sided abdominal pain/flank pain. #Hydrophic Gallbladder on Ct of abdomen and pelvis measuring 8.5cm with Dilated CBD, MRCP as above , LFts normal will check with GI, no further pain as per patient. will check with GI if any intervention is needed further # LEYDI over chronic 1.3 creatinine, will continue to monitor # Hypertension : more controlled now, continue home meds , will continue to monitor if needed further meds. possible dc home in am if patient tolerates diet and will check with GI as well.
[2019-01-17] MEDS: DONEPEZIL HCL 5 MG TABLET (FP) PO SCH (21:22)
[2019-01-18] MEDS: cloNIDine HCL 0.1 MG TABLET PO SCH ×3 (05:38→21:30)
[2019-01-18] MEDS: HEPARIN NA (PORCINE) 5,000 UNITS/ML 1ML VIAL SQ SCH ×3 (05:38→21:31)
[2019-01-18 08:51] LABS: BASO % 0.8 % (0-2.0); EOS % 2.1 % (0-4.5); HEMATOCRIT 35.9 % (35.4-49); HEMOGLOBIN 12.1 GM/dL (11.7-16.9); LYMPH % 37.7 % (8-40); MCH 27.5 pg (25.7-33.7); MCHC 33.8 g/dl (32.0-35.9); MEAN CELL VOLUME 81.3 fl (80-96); MEAN PLT VOLUME 8.8 fl (7.5-11.1); MONO % 12.8 % (3.8-10.2); NEUT % 46.6 % (42.8-82.8); PLATELET COUNT 123 K/MM3 (134-434); RBC 4.41 M/mm3 (4.00-5.60); RDW 13.8 % (11.9-15.9)
[2019-01-18 09:01] LABS: WHITE BLOOD COUNT 1.8 K/mm3 (4.0-10.0)
[2019-01-18 09:23] LABS: ALBUMIN 3.2 g/dl (3.4-5.0); BILIRUBIN,TOTAL 0.4 mg/dL (0.2-1); BLOOD UREA NITROGEN 10.3 mg/dL (7-18); CALCIUM 8.4 mg/dL (8.5-10.1); CREATININE 1.3 mg/dL (0.55-1.3); MAGNESIUM 2.4 mg/dL (1.8-2.4); PHOSPHOROUS 4.2 mg/dL (2.5-4.9); POTASSIUM 3.8 mmol/L (3.5-5.1); TOT PROT 5.9 g/dl (6.4-8.2)
[2019-01-18] MEDS: hydrALAZINE HCL 10 MG TABLET PO SCH (09:52)
[2019-01-18] MEDS: PANTOPRAZOLE 40 MG TABLET PO SCH (09:52)
[2019-01-18] MEDS: amLODIPine BESYLATE 10 MG TABLET (FP) PO SCH (09:52)
[2019-01-18] MEDS: DOCUSATE SODIUM 100 MG CAPSULE (FP) PO SCH ×2 (09:52→21:30)
[2019-01-18] MEDS: LISINOPRIL 20 MG TABLET (FP) PO SCH (09:52)
[2019-01-18] MEDS: DONEPEZIL HCL 5 MG TABLET (FP) PO SCH (09:52)
[2019-01-18] MEDS: POLYETHYLENE GLYCOL 3350 119 GM BTL PO SCH ×2 (09:53→21:30)
[2019-01-18 12:02] LABS: ANISOCYTOSIS 0; MACROCYTOSIS 0; OVALOCYTE 1+; PLATELET ESTIMATE DECREASED
[2019-01-18] MEDS ORDERED: GLYCERIN 1 RECTAL SUPPOSITORY, ADULT RC PRN (14:43)
[2019-01-18] MEDS ORDERED: PT OWN MED DRAWER 7, Y5N ONE (15:14)
--- NOTE | 2019-01-18 18:16 | PN ---
Progress Note (short form) - Note Progress Note: Patient is comfortable with no acute distress, no abdominal pain, feels constipated. Daughter at bed side OBJECTIVE:Vital Signs Temperature 97.8 F 01/18/19 13:52 Pulse Rate 70 01/18/19 13:52 Respiratory Rate 18 01/18/19 13:52 Blood Pressure 160/87 01/18/19 13:52 O2 Sat by Pulse Oximetry (%) 96 01/18/19 09:00 GENERAL: Awake, alert, and fully oriented, in no acute distress. HEAD: Normal with no signs of trauma. EYES: sclera anicteric, conjunctiva clear. NECK: Normal ROM, supple without lymphadenopathy, JVD, or masses. ABDOMEN: Soft, NT, ND, normoactive bowel sounds, no guarding, no rebound, no masses. MSC: Normal ROM at all joints. No bony deformities or tenderness. No CVA tenderness. EXTREMITIES: 2+ pulses, warm, well-perfused. No calf tenderness. No peripheral edema. NEUROLOGICAL: Normal speech, gait not observed. PSYCH: Cooperative. Good eye contact. Appropriate mood and affect. SKIN: Warm, dry, normal turgor, no rashes or lesions noted. CBCD WBC 1.8 K/mm3 (4.0-10.0) L* 01/18/19 07:20 RBC 4.41 M/mm3 (4.00-5.60) 01/18/19 07:20 Hgb 12.1 GM/dL (11.7-16.9) 01/18/19 07:20 Hct 35.9 % (35.4-49) 01/18/19 07:20 MCV 81.3 fl (80-96) 01/18/19 07:20 MCHC 33.8 g/dl (32.0-35.9) 01/18/19 07:20 RDW 13.8 % (11.9-15.9) 01/18/19 07:20 Plt Count 123 K/MM3 (134-434) L 01/18/19 07:20 MPV 8.8 fl (7.5-11.1) 01/18/19 07:20 CMP Sodium 141 mmol/L (136-145) 01/18/19 07:20 Potassium 3.8 mmol/L (3.5-5.1) 01/18/19 07:20 Chloride 105 mmol/L (98-107) 01/18/19 07:20 Carbon Dioxide 28 mmol/L (21-32) 01/18/19 07:20 Anion Gap 8 MMOL/L (8-16) 01/18/19 07:20 BUN 10.3 mg/dL (7-18) 01/18/19 07:20 Creatinine 1.3 mg/dL (0.55-1.3) 01/18/19 07:20 Random Glucose 92 mg/dL (74-106) 01/18/19 07:20 Calcium 8.4 mg/dL (8.5-10.1) L 01/18/19 07:20 Total Bilirubin 0.4 mg/dL (0.2-1) 01/18/19 07:20 AST 10 U/L (15-37) L 01/18/19 07:20 ALT 13 U/L (13-61) 01/18/19 07:20 Alkaline Phosphatase 83 U/L (45-117) 01/18/19 07:20 Total Protein 5.9 g/dl (6.4-8.2) L 01/18/19 07:20 Albumin 3.2 g/dl (3.4-5.0) L 01/18/19 07:20 CARDIAC ENZYMES Troponin I < 0.02 ng/ml (0.00-0.05) 01/16/19 07:30 Current Medications Generic Name Dose Route Start Last Admin Trade Name Clintonq PRN Reason Stop Dose Admin Amlodipine Besylate 10 mg 01/16/19 12:45 01/18/19 09:52 Norvasc - PO 10 mg DAILY RAIN Administration Clonidine 0.1 mg 01/16/19 12:43 01/18/19 13:46 Catapres - PO 0.1 mg TID RAIN Administration Docusate Sodium 100 mg 01/16/19 12:45 01/18/19 09:52 Colace - PO 100 mg BID RAIN Administration Donepezil HCl 5 mg 01/18/19 10:00 01/18/19 09:52 Aricept - PO 5 mg AM RAIN Administration Glycerin 2 each 01/18/19 14:43 Glycerin Suppository Adult - RC DAILY PRN CONSTIPATION Heparin Sodium (Porcine) 5,000 unit 01/15/19 22:00 12/07/19 13:46 Heparin - SQ 5,000 unit TID RAIN Administration Hydralazine HCl 10 mg 01/17/19 10:00 01/18/19 09:52 Apresoline - PO 10 mg DAILY RAIN Administration Dextrose/Sodium Chloride 1,000 mls @ 42 mls/hr 01/16/19 16:45 01/17/19 16:08 D5-1/2ns - IV Not Given ASDIR RAIN Lisinopril 40 mg 01/16/19 12:45 01/18/19 09:52 Prinivil PO 40 mg DAILY RAIN Administration Pantoprazole Sodium 40 mg 01/16/19 12:45 01/18/19 09:52 Protonix - PO 40 mg DAILY RAIN Administration Polyethylene Glycol 17 gm 01/16/19 22:00 01/18/19 09:53 Miralax (For Daily Use) - PO 17 gm BID RAIN Administration Home Medications Medication Instructions Recorded Amlodipine Besylate 10 mg PO DAILY 01/15/19 Clonidine HCl 0.1 mg PO TID 01/15/19 Docusate Sodium [Colace -] 100 mg PO BID 01/15/19 Donepezil HCl [Aricept -] 5 mg PO AM 01/15/19 Lisinopril [Prinivil -] 40 mg PO DAILY 01/15/19 Omeprazole 40 mg PO DAILY 01/15/19 CT scan of the abdomen/pelvis : dilated gallbladder and dilated intrahepatic bile ducts and nonobstructing left kidney stone of 8mm MRI of the abdomen: slight gallbladder overdistention , trace amount of adjacent free fluid is seen. CBD is 1.2cm in diameter, no evidence of choledocholithiasis, the main pancreatic duct is slightely dilated 3.4mm diameter. ASSESSMENT AND PLAN: Pt is an 88 year old male with pmhx of htn and dementia who presents to the ER with right sided abdominal pain/flank pain. #Hydrophic Gallbladder on Ct of abdomen and pelvis measuring 8.5cm with Dilated CBD, MRCP as above , LFts normal will check with GI, if any intervention is needed further # LEYDI over chronic 1.3 creatinine # Hypertension : continue home meds. possible dc home in am if patient tolerates diet and will check with GI as well. Visit type - Emergency Visit Emergency Visit: Yes ED Registration Date: 01/15/19 Care time: The patient presented to the Emergency Department on the above date and was hospitalized for further evaluation of their emergent condition. - New Patient This patient is new to me today: No - Critical Care Critical Care patient: No - [facility]charge [facility] No
[2019-01-18] MEDS: DEXTROSE 5%-0.45% SALINE 1,000 ML IV SCH ×2 (19:16→21:34)
[2019-01-19] MEDS: HEPARIN NA (PORCINE) 5,000 UNITS/ML 1ML VIAL SQ SCH ×3 (06:35→22:15)
[2019-01-19] MEDS: cloNIDine HCL 0.1 MG TABLET PO SCH ×2 (06:36→22:15)
[2019-01-19] MEDS: DONEPEZIL HCL 5 MG TABLET (FP) PO SCH (06:36)
[2019-01-19 07:53] LABS: BASO % 0.6 % (0-2.0); EOS % 1.6 % (0-4.5); HEMATOCRIT 38.6 % (35.4-49); HEMOGLOBIN 13.1 GM/dL (11.7-16.9); LYMPH % 36.6 % (8-40); MCH 27.6 pg (25.7-33.7); MCHC 33.9 g/dl (32.0-35.9); MEAN CELL VOLUME 81.4 fl (80-96); MEAN PLT VOLUME 8.7 fl (7.5-11.1); MONO % 11.5 % (3.8-10.2); NEUT % 49.7 % (42.8-82.8); PLATELET COUNT 124 K/MM3 (134-434); RBC 4.73 M/mm3 (4.00-5.60); WHITE BLOOD COUNT 2.1 K/mm3 (4.0-10.0)
[2019-01-19 07:58] LABS: ALBUMIN 3.2 g/dl (3.4-5.0); BILIRUBIN,TOTAL 0.3 mg/dL (0.2-1); BLOOD UREA NITROGEN 9.2 mg/dL (7-18); CALCIUM 8.6 mg/dL (8.5-10.1); CREATININE 1.4 mg/dL (0.55-1.3); MAGNESIUM 2.4 mg/dL (1.8-2.4); PHOSPHOROUS 3.7 mg/dL (2.5-4.9); POTASSIUM 3.8 mmol/L (3.5-5.1); TOT PROT 6.4 g/dl (6.4-8.2)
[2019-01-19] MEDS: DOCUSATE SODIUM 100 MG CAPSULE (FP) PO SCH ×2 (10:54→22:15)
[2019-01-19] MEDS: POLYETHYLENE GLYCOL 3350 119 GM BTL PO SCH ×2 (10:54→22:15)
[2019-01-19] MEDS: amLODIPine BESYLATE 10 MG TABLET (FP) PO SCH ×2 (10:54→11:30)
[2019-01-19] MEDS: PANTOPRAZOLE 40 MG TABLET PO SCH (10:55)
[2019-01-19] MEDS: LISINOPRIL 20 MG TABLET (FP) PO SCH (10:55)
[2019-01-19] MEDS: hydrALAZINE HCL 10 MG TABLET PO SCH (11:30)
[2019-01-19] MEDS ORDERED: cloNIDine HCL 0.1 MG TABLET PO SCH ×2 (14:00)
--- NOTE | 2019-01-19 14:02 | PN ---
Physical Exam: SUBJECTIVE: Patient seen and examined at bedside- no acute events overnight patient states that he is feeling well however his BP remains uncontrolled'he denies any abdominal pains; has moved his bowels- his BP still remains uncontrolled; denies any CP/SOB?N/V fevers or chills OBJECTIVE: Vital Signs Period Temp Pulse Resp BP Sys/Garcia Pulse Ox Last 24 Hr 97.3 F-98.1 F 59-80 16-20 143-179/81-88 96 GENERAL: The patient is awake, alert, and fully oriented, in no acute distress. EYES: PEERLA; EOMI no scleral icterus NECK: no JVD; no lymphadenopathy LUNGS: CTA B.L; no rales, rhonchi or wheezing. HEART: Regular rate and rhythm, S1, S2 without murmur, rub or gallop. ABDOMEN: Soft, NT/ND +BS in all 4 quadrants . EXTREMITIES: 2+ pulses, warm, well-perfused, no edema. PSYCH: Normal mood, normal affect. SKIN: Warm, dry, normal turgor, no rashes or lesions noted Laboratory Results - last 24 hr 01/19/19 01/19/19 06:35 06:35 WBC 2.1 L RBC 4.73 Hgb 13.1 Hct 38.6 MCV 81.4 MCH 27.6 MCHC 33.9 RDW 14.0 Plt Count 124 L MPV 8.7 Absolute Neuts (auto) 1.1 L Neutrophils % 49.7 Lymphocytes % 36.6 Monocytes % 11.5 H Eosinophils % 1.6 Basophils % 0.6 Nucleated RBC % 0 Sodium 141 Potassium 3.8 Chloride 106 Carbon Dioxide 28 Anion Gap 7 L BUN 9.2 Creatinine 1.4 H Est GFR (CKD-EPI)AfAm 51.26 Est GFR (CKD-EPI)NonAf 44.23 Random Glucose 92 Calcium 8.6 Phosphorus 3.7 Magnesium 2.4 Total Bilirubin 0.3 AST 10 L ALT 13 Alkaline Phosphatase 94 Total Protein 6.4 Albumin 3.2 L Active Medications Generic Name Dose Route Start Last Admin Trade Name Freq PRN Reason Stop Dose Admin Amlodipine Besylate 10 mg 01/19/19 10:22 01/19/19 10:54 Norvasc - PO 10 mg DAILY RAIN Administration Docusate Sodium 100 mg 01/16/19 12:45 01/19/19 10:54 Colace - PO 100 mg BID RAIN Administration Donepezil HCl 5 mg 01/18/19 10:00 01/19/19 06:36 Aricept - PO 5 mg AM RAIN Administration Glycerin 2 each 01/18/19 14:43 Glycerin Suppository Adult - RC DAILY PRN CONSTIPATION Heparin Sodium (Porcine) 5,000 unit 01/15/19 22:00 01/19/19 13:30 Heparin - SQ 5,000 unit TID RAIN Administration Dextrose/Sodium Chloride 1,000 mls @ 42 mls/hr 01/16/19 16:45 01/18/19 21:34 D5-1/2ns - IV 42 mls/hr ASDIR RAIN Administration Lisinopril 40 mg 01/16/19 12:45 01/19/19 10:55 Prinivil PO 40 mg DAILY RAIN Administration Pantoprazole Sodium 40 mg 01/16/19 12:45 01/19/19 10:55 Protonix - PO 40 mg DAILY RAIN Administration Polyethylene Glycol 17 gm 01/16/19 22:00 01/19/19 10:54 Miralax (For Daily Use) - PO 17 gm BID RAIN Administration ASSESSMENT/PLAN: Mr. Nigel Miller is an 88y/o male with a HTN, GERD, dementia, and constipation who presents to the ER with 1 day of worsening right sided abdominal pain/ distention. #abdominal pain liekly 2/2 constipation -MRCP done adn read -GI following #LEYDI, improved -renal following (Dr. Sharma)- #HTN uncontrolleed; added hydrlazine 10mg BID and increased clonidine to 0.2 mg TID -c/w lisiniprl 40 monitor hemodynamics #dementia -discontinue aricept DVT Ppx heparin Problem List - Problems (1) Dilated gallbladder Code(s): K82.8 - OTHER SPECIFIED DISEASES OF GALLBLADDER (2) HTN (hypertension) Code(s): I10 - ESSENTIAL (PRIMARY) HYPERTENSION Visit type - Emergency Visit Emergency Visit: Yes ED Registration Date: 01/15/19 Care time: The patient presented to the Emergency Department on the above date and was hospitalized for further evaluation of their emergent condition. - New Patient This patient is new to me today: No - Critical Care Critical Care patient: No ATTENDING PHYSICIAN STATEMENT I saw and evaluated the patient. I reviewed the resident's note and discussed the case with the resident. I agree with the resident's findings and plan as documented. SUBJECTIVE: OBJECTIVE: ASSESSMENT AND PLAN:
--- NOTE | 2019-01-19 16:39 | PN ---
Teaching Attending Note Name of Resident: Charo Pepe ATTENDING PHYSICIAN STATEMENT I saw and evaluated the patient. I reviewed the resident's note and discussed the case with the resident. I agree with the resident's findings and plan as documented. SUBJECTIVE: Patient is comfortable with no acute distress. Vital Signs Temperature 98.1 F 01/19/19 11:01 Pulse Rate 59 L 01/19/19 13:31 Respiratory Rate 17 01/19/19 13:31 Blood Pressure 179/84 H 01/19/19 13:31 O2 Sat by Pulse Oximetry (%) 96 01/18/19 21:00 GENERAL: Awake, alert, and fully oriented, in no acute distress. HEAD: Normal with no signs of trauma. EYES: sclera anicteric, conjunctiva clear. NECK: Normal ROM, supple without lymphadenopathy, JVD, or masses. CHEST: CTA BL HEART: S1S2 positive, no rub or gallop ABDOMEN: Soft, NT, ND, normoactive bowel sounds, no guarding, no rebound, no masses. EXTREMITIES: 2+ pulses, warm, well-perfused. No calf tenderness. No peripheral edema. NEUROLOGICAL: Normal speech, gait not observed. PSYCH: Cooperative. Good eye contact. Appropriate mood and affect. SKIN: Warm, dry, normal turgor, no rashes or lesions noted. CBCD WBC 2.1 K/mm3 (4.0-10.0) L 01/19/19 06:35 RBC 4.73 M/mm3 (4.00-5.60) 01/19/19 06:35 Hgb 13.1 GM/dL (11.7-16.9) 01/19/19 06:35 Hct 38.6 % (35.4-49) 01/19/19 06:35 MCV 81.4 fl (80-96) 01/19/19 06:35 MCHC 33.9 g/dl (32.0-35.9) 01/19/19 06:35 RDW 14.0 % (11.9-15.9) 01/19/19 06:35 Plt Count 124 K/MM3 (134-434) L 01/19/19 06:35 MPV 8.7 fl (7.5-11.1) 01/19/19 06:35 CMP Sodium 141 mmol/L (136-145) 01/19/19 06:35 Potassium 3.8 mmol/L (3.5-5.1) 01/19/19 06:35 Chloride 106 mmol/L (98-107) 01/19/19 06:35 Carbon Dioxide 28 mmol/L (21-32) 01/19/19 06:35 Anion Gap 7 MMOL/L (8-16) L 01/19/19 06:35 BUN 9.2 mg/dL (7-18) 01/19/19 06:35 Creatinine 1.4 mg/dL (0.55-1.3) H 01/19/19 06:35 Random Glucose 92 mg/dL (74-106) 01/19/19 06:35 Calcium 8.6 mg/dL (8.5-10.1) 01/19/19 06:35 Total Bilirubin 0.3 mg/dL (0.2-1) 01/19/19 06:35 AST 10 U/L (15-37) L 01/19/19 06:35 ALT 13 U/L (13-61) 01/19/19 06:35 Alkaline Phosphatase 94 U/L (45-117) 01/19/19 06:35 Total Protein 6.4 g/dl (6.4-8.2) 01/19/19 06:35 Albumin 3.2 g/dl (3.4-5.0) L 01/19/19 06:35 CARDIAC ENZYMES Troponin I < 0.02 ng/ml (0.00-0.05) 01/16/19 07:30 Current Medications Generic Name Dose Route Start Last Admin Trade Name Freq PRN Reason Stop Dose Admin Amlodipine Besylate 10 mg 01/19/19 10:22 01/19/19 10:54 Norvasc - PO 10 mg DAILY RAIN Administration Clonidine 0.2 mg 01/19/19 14:02 Catapres - PO TID RAIN Docusate Sodium 100 mg 01/16/19 12:45 01/19/19 10:54 Colace - PO 100 mg BID RAIN Administration Donepezil HCl 5 mg 01/18/19 10:00 01/19/19 06:36 Aricept - PO 5 mg AM RAIN Administration Glycerin 2 each 01/18/19 14:43 Glycerin Suppository Adult - RC DAILY PRN CONSTIPATION Heparin Sodium (Porcine) 5,000 unit 01/15/19 22:00 01/19/19 13:30 Heparin - SQ 5,000 unit TID RAIN Administration Dextrose/Sodium Chloride 1,000 mls @ 42 mls/hr 01/16/19 16:45 01/18/19 21:34 D5-1/2ns - IV 42 mls/hr ASDIR RAIN Administration Lisinopril 40 mg 01/16/19 12:45 01/19/19 10:55 Prinivil PO 40 mg DAILY RAIN Administration Pantoprazole Sodium 40 mg 01/16/19 12:45 01/19/19 10:55 Protonix - PO 40 mg DAILY RAIN Administration Polyethylene Glycol 17 gm 01/16/19 22:00 01/19/19 10:54 Miralax (For Daily Use) - PO 17 gm BID RAIN Administration 2 Home Medications Medication Instructions Recorded Amlodipine Besylate 10 mg PO DAILY 01/15/19 Clonidine HCl 0.1 mg PO TID 01/15/19 Docusate Sodium [Colace -] 100 mg PO BID 01/15/19 Donepezil HCl [Aricept -] 5 mg PO AM 01/15/19 Lisinopril [Prinivil -] 40 mg PO DAILY 01/15/19 Omeprazole 40 mg PO DAILY 01/15/19 CT scan of the abdomen/pelvis : dilated gallbladder and dilated intrahepatic bile ducts and nonobstructing left kidney stone of 8mm MRI of the abdomen: slight gallbladder overdistention , trace amount of adjacent free fluid is seen. CBD is 1.2cm in diameter, no evidence of choledocholithiasis, the main pancreatic duct is slightely dilated 3.4mm diameter. ASSESSMENT AND PLAN: Pt is an 88 year old male with pmhx of htn and dementia who presents to the ER with right sided abdominal pain/flank pain. # HTN Uncontrolled: Will increase clonidine to 0.2mg tid, will monitor #Hydrophic Gallbladder on Ct of abdomen and pelvis measuring 8.5cm with Dilated CBD, MRCP as above , LFts normal will check with GI, if any intervention is needed further # LEYDI over chronic 1.3-->1.4 creatinine stable # Acute over chronic constipation: On Miralx, colace #Hx of Dementia: on Aricept continue. possible dc home in am if patient bp is controlled.
[2019-01-19] MEDS: DEXTROSE 5%-0.45% SALINE 1,000 ML IV SCH (18:49)
[2019-01-19] MEDS ORDERED: hydrALAZINE HCL 10 MG TABLET PO SCH ×2 (22:00)
[2019-01-20] MEDS: DONEPEZIL HCL 5 MG TABLET (FP) PO SCH (06:27)
[2019-01-20] MEDS: cloNIDine HCL 0.1 MG TABLET PO SCH ×2 (06:27→14:59)
[2019-01-20] MEDS: HEPARIN NA (PORCINE) 5,000 UNITS/ML 1ML VIAL SQ SCH ×2 (06:27→14:59)
[2019-01-20 08:08] LABS: HEMATOCRIT 36.7 % (35.4-49); HEMOGLOBIN 12.2 GM/dL (11.7-16.9); MCH 27.4 pg (25.7-33.7); MCHC 33.4 g/dl (32.0-35.9); MEAN PLT VOLUME 8.5 fl (7.5-11.1); PLATELET COUNT 114 K/MM3 (134-434); RBC 4.47 M/mm3 (4.00-5.60); RDW 14.1 % (11.9-15.9)
[2019-01-20 08:22] LABS: WHITE BLOOD COUNT 1.8 K/mm3 (4.0-10.0)
[2019-01-20 08:42] LABS: ALBUMIN 3.1 g/dl (3.4-5.0); BILIRUBIN,TOTAL 0.3 mg/dL (0.2-1); BLOOD UREA NITROGEN 12.3 mg/dL (7-18); CALCIUM 8.4 mg/dL (8.5-10.1); CREATININE 1.4 mg/dL (0.55-1.3); MAGNESIUM 2.3 mg/dL (1.8-2.4); PHOSPHOROUS 3.8 mg/dL (2.5-4.9); POTASSIUM 3.9 mmol/L (3.5-5.1); TOT PROT 5.9 g/dl (6.4-8.2)
[2019-01-20 08:55] VITALS: TEMP 98
[2019-01-20] MEDS: POLYETHYLENE GLYCOL 3350 119 GM BTL PO SCH (10:29)
[2019-01-20] MEDS: PANTOPRAZOLE 40 MG TABLET PO SCH (10:29)
[2019-01-20] MEDS: amLODIPine BESYLATE 10 MG TABLET (FP) PO SCH (10:29)
[2019-01-20] MEDS: LISINOPRIL 20 MG TABLET (FP) PO SCH (10:29)
[2019-01-20] MEDS: DOCUSATE SODIUM 100 MG CAPSULE (FP) PO SCH (10:29)
[2019-01-20 11:23] VITALS: BP 102/47; PULSE 62
--- NOTE | 2019-01-20 13:05 | PN ---
Progress Note, Physician History of Present Illness: Pt seen and examined at bedside. He is tolerating diet. He denies shortness of breath. - Current Medication List Current Medications: Active Medications Amlodipine Besylate (Norvasc -) 10 mg PO DAILY [facility] Last Admin: 01/20/19 10:29 Dose: 10 mg Clonidine (Catapres -) 0.2 mg PO TID [facility] Last Admin: 01/20/19 06:27 Dose: 0.2 mg Docusate Sodium (Colace -) 100 mg PO BID [facility] Last Admin: 01/20/19 10:29 Dose: 100 mg Donepezil HCl (Aricept -) 5 mg PO AM [facility] Last Admin: 01/20/19 06:27 Dose: 5 mg Glycerin (Glycerin Suppository Adult -) 2 each RC DAILY PRN PRN Reason: CONSTIPATION Heparin Sodium (Porcine) (Heparin -) 5,000 unit SQ TID [facility] Last Admin: 01/20/19 06:27 Dose: 5,000 unit Lisinopril (Prinivil) 40 mg PO DAILY [facility] Last Admin: 01/20/19 10:29 Dose: 40 mg Pantoprazole Sodium (Protonix -) 40 mg PO DAILY [facility] Last Admin: 01/20/19 10:29 Dose: 40 mg Polyethylene Glycol (Miralax (For Daily Use) -) 17 gm PO BID [facility] Last Admin: 01/20/19 10:29 Dose: 17 gm - Objective Vital Signs: Vital Signs Temperature 98.0 F 01/20/19 08:53 Pulse Rate 62 01/20/19 11:22 Respiratory Rate 17 01/20/19 11:22 Blood Pressure 102/47 L 01/20/19 11:22 O2 Sat by Pulse Oximetry (%) 97 01/20/19 08:55 Constitutional: Yes: Calm Eyes: Yes: Conjunctiva Clear HENT: Yes: Atraumatic Neck: Yes: Supple Cardiovascular: Yes: S1, S2 Respiratory: Yes: CTA Bilaterally Gastrointestinal: Yes: Soft Genitourinary: Yes: WNL Musculoskeletal: Yes: WNL Edema: No Neurological: Yes: Oriented Psychiatric: Yes: Oriented Labs: CBC, BMP 01/20/19 06:50 01/20/19 06:50 INR, PTT INR 1.06 (0.83-1.09) 01/15/19 13:20 Problem List - Problems (1) HTN (hypertension) Code(s): I10 - ESSENTIAL (PRIMARY) HYPERTENSION (2) Dilated gallbladder Code(s): K82.8 - OTHER SPECIFIED DISEASES OF GALLBLADDER Assessment/Plan Current Medications Generic Name Dose Route Start Last Admin Trade Name Freq PRN Reason Stop Dose Admin Amlodipine Besylate 10 mg 01/19/19 10:22 01/20/19 10:29 Norvasc - PO 10 mg DAILY RAIN Administration Clonidine 0.2 mg 01/19/19 14:02 01/20/19 06:27 Catapres - PO 0.2 mg TID RAIN Administration Docusate Sodium 100 mg 01/16/19 12:45 01/20/19 10:29 Colace - PO 100 mg BID RAIN Administration Donepezil HCl 5 mg 01/18/19 10:00 01/20/19 06:27 Aricept - PO 5 mg AM RAIN Administration Glycerin 2 each 01/18/19 14:43 Glycerin Suppository Adult - RC DAILY PRN CONSTIPATION Heparin Sodium (Porcine) 5,000 unit 01/15/19 22:00 01/20/19 06:27 Heparin - SQ 5,000 unit TID RAIN Administration Lisinopril 40 mg 01/16/19 12:45 01/20/19 10:29 Prinivil PO 40 mg DAILY RAIN Administration Pantoprazole Sodium 40 mg 01/16/19 12:45 01/20/19 10:29 Protonix - PO 40 mg DAILY RAIN Administration Polyethylene Glycol 17 gm 01/16/19 22:00 01/20/19 10:29 Miralax (For Daily Use) - PO 17 gm BID RAIN Administration Impression 1. HTN 2. CKD 3. nephrlithiasis 4. dementia 5. abd pain Plan - bp improved after am meds - discussed with medical team - renal function stable for now - will see in office - discussed with family
--- NOTE | 2019-01-20 15:49 | DS ---
Physical Exam: SUBJECTIVE: Patient seen and examined. He denies abdominal pain, nausea, vomiting, or diarrhea. OBJECTIVE: Vital Signs Period Temp Pulse Resp BP Sys/Garcia Pulse Ox Last 24 Hr 97.8 F-98.6 F 52-62 16-20 102-161/47-88 97-100 PHYSICAL EXAM GENERAL: The patient is awake and alert, in no acute distress. HEAD: Normal with no signs of trauma. EYES: PERRL, extraocular movements intact, conjunctiva clear. ENT: Ears normal, nares patent, moist mucous membranes. NECK: Trachea midline, full range of motion LUNGS: Clear to auscultation bilaterally, no wheezes HEART: Regular rate and rhythm, no murmur ABDOMEN: Non-tender on palpation, non-distended, normoactive bowel sounds, no guarding EXTREMITIES: Warm, well-perfused, no edema. NEUROLOGICAL: Cranial nerves II through XII grossly intact. Normal speech PSYCH: Normal mood, normal affect. SKIN: Warm, dry, normal turgor LABS Laboratory Results - last 24 hr 01/20/19 01/20/19 06:50 06:50 WBC 1.8 L* RBC 4.47 Hgb 12.2 Hct 36.7 MCV 82.0 MCH 27.4 MCHC 33.4 RDW 14.1 Plt Count 114 L MPV 8.5 Sodium 140 Potassium 3.9 Chloride 105 Carbon Dioxide 29 Anion Gap 6 L BUN 12.3 Creatinine 1.4 H Est GFR (CKD-EPI)AfAm 51.26 Est GFR (CKD-EPI)NonAf 44.23 Random Glucose 97 Calcium 8.4 L Phosphorus 3.8 Magnesium 2.3 Total Bilirubin 0.3 AST 9 L ALT 14 Alkaline Phosphatase 87 Total Protein 5.9 L Albumin 3.1 L HOSPITAL COURSE: Mr. Nigel Miller is an 88y/o male with a HTN, GERD, dementia, and constipation who presents to the ER with 1 day of worsening right sided abdominal pain/ distention. CT showed distended gallbladder and dilated CBD which was confirmed with MRCP. Pt was given bowel regimen for constipation and had 1 small oily BM. His abdominal pain and distention resolved. Pt also had LEYDI on presentation which improved with fluids. Pt's blood pressure varied during hospital course and clonidine was temporarily increased. He was instructed to monitor his pressure at home and f/u with Dr. Sharma. Date of Admission:01/15/19 Date of Discharge: 01/20/19 Minutes to complete discharge: 35 Discharge Summary Problems reviewed: Yes Reason For Visit: GALLBLADDER DIOLATION Current Active Problems Constipation (Acute) Dilated gallbladder (Acute) HTN (hypertension) (Acute) Left renal stone (Acute) Condition: Stable - Instructions Diet, Activity, Other Instructions: You came to the hospital with complaints of abdominal pain. We did imaging of your abdomen which did not show any signs of infection or abnormalities. You were evaluated by a regional climate change analyst. You were also evaluated by a urologist as a kidney stone was seen on your abdominal CT scan Your symptoms improved and you were stable to be discharged home. Please resume all of your home medications in addition: we are prescribing you a stool softener, Miralax to be taken as needed Please DO NOT take all of your blood pressure medications at once- please take the Lisinpril in the morning and the Amlodipine at night before bed. in addition , continue taking the clonidine 0.1mg three times a day . please check your blood pressure everyday to make sure it is not too high or too low We are prescribing you a blood pressure machine to check your pressures with Please follow up with Dr. Bonilla within one week Please follow up with Dr. Sharma within one week Please follow up with Dr. Boothe, within one to two weeks Please follow up with Dr. Jimenez within one to two weeks Please follow up with Dr. Estes the woodwind instrument repairer your white blood count was slightly decreased *if you begin to experience worsening abdominal pain, chest pains, shortness of breath, nausea/vomiting fevers please return to the emergency room immediately Referrals: Josafat Hammer DO [Staff Physician] - 1 Week Gabriel Jimenez MD [Staff Physician] - Jignesh Estes MD [Staff Physician] - 1 Week Lorenzo Sharma MD [Staff Physician] - 1 Week Venus Bonilla MD [Primary Care Provider] - 1 Week Disposition: HOME - Home Medications Comprehensive Discharge Medication List: Ambulatory Orders Amlodipine Besylate 10 mg PO DAILY 01/15/19 Docusate Sodium [Colace -] 100 mg PO BID 01/15/19 Donepezil HCl [Aricept -] 5 mg PO AM 01/15/19 Lisinopril [Prinivil -] 40 mg PO DAILY 01/15/19 Omeprazole 40 mg PO DAILY 01/15/19 Polyethylene Glycol 3350 [Miralax 119 gm Btl -] 17 gm PO BID #1 bottle 01/19/19 Blood Pressure Kit Estefania Martínez [Blood Pressure Monitor] 1 each MC DAILY #1 kit 10/31 cloNIDine HCL [Catapres -] 0.1 mg PO TID tablet 01/20/19 cloNIDine HCL [Catapres -] 0.1 mg PO TID #30 tablet 01/20/19 This patient is new to me today: No Emergency Visit: Yes ED Registration Date: 01/15/19 Care time: The patient presented to the Emergency Department on the above date and was hospitalized for further evaluation of their emergent condition. Critical Care patient: No - Discharge Referral Referred to [facility] No ATTENDING PHYSICIAN STATEMENT I saw and evaluated the patient. I reviewed the resident's note and discussed the case with the resident. I agree with the resident's findings and plan as documented. SUBJECTIVE: OBJECTIVE: ASSESSMENT AND PLAN:
--- NOTE | 2019-01-20 18:08 | PN ---
Teaching Attending Note Name of Resident: Jane Sharpe ATTENDING PHYSICIAN STATEMENT I saw and evaluated the patient. I reviewed the resident's note and discussed the case with the resident. I agree with the resident's findings and plan as documented. SUBJECTIVE: Patient is comfortable with no acute distress. awake, alert. Vital Signs Temperature 98.0 F 01/20/19 08:53 Pulse Rate 62 01/20/19 11:22 Respiratory Rate 17 01/20/19 11:22 Blood Pressure 102/47 L 01/20/19 11:22 O2 Sat by Pulse Oximetry (%) 97 01/20/19 08:55 GENERAL: Awake, alert, and fully oriented, in no acute distress. HEAD: Normal with no signs of trauma. EYES: sclera anicteric, conjunctiva clear. NECK: Normal ROM, supple without lymphadenopathy, JVD, or masses. CHEST: CTA BL HEART: S1S2 positive, no rub or gallop ABDOMEN: Soft, NT, ND, normoactive bowel sounds, no guarding, no rebound, no masses. EXTREMITIES: 2+ pulses, warm, well-perfused. No calf tenderness. No peripheral edema. NEUROLOGICAL: Normal speech, gait not observed. PSYCH: Cooperative. Good eye contact. Appropriate mood and affect. SKIN: Warm, dry, normal turgor, no rashes or lesions noted. CBCD WBC 1.8 K/mm3 (4.0-10.0) L* 01/20/19 06:50 RBC 4.47 M/mm3 (4.00-5.60) 01/20/19 06:50 Hgb 12.2 GM/dL (11.7-16.9) 01/20/19 06:50 Hct 36.7 % (35.4-49) 01/20/19 06:50 MCV 82.0 fl (80-96) 01/20/19 06:50 MCHC 33.4 g/dl (32.0-35.9) 01/20/19 06:50 RDW 14.1 % (11.9-15.9) 01/20/19 06:50 Plt Count 114 K/MM3 (134-434) L 01/20/19 06:50 MPV 8.5 fl (7.5-11.1) 01/20/19 06:50 CMP Sodium 140 mmol/L (136-145) 01/20/19 06:50 Potassium 3.9 mmol/L (3.5-5.1) 01/20/19 06:50 Chloride 105 mmol/L (98-107) 01/20/19 06:50 Carbon Dioxide 29 mmol/L (21-32) 01/20/19 06:50 Anion Gap 6 MMOL/L (8-16) L 01/20/19 06:50 BUN 12.3 mg/dL (7-18) 01/20/19 06:50 Creatinine 1.4 mg/dL (0.55-1.3) H 01/20/19 06:50 Random Glucose 97 mg/dL (74-106) 01/20/19 06:50 Calcium 8.4 mg/dL (8.5-10.1) L 01/20/19 06:50 Total Bilirubin 0.3 mg/dL (0.2-1) 01/20/19 06:50 AST 9 U/L (15-37) L 01/20/19 06:50 ALT 14 U/L (13-61) 01/20/19 06:50 Alkaline Phosphatase 87 U/L (45-117) 01/20/19 06:50 Total Protein 5.9 g/dl (6.4-8.2) L 01/20/19 06:50 Albumin 3.1 g/dl (3.4-5.0) L 01/20/19 06:50 CARDIAC ENZYMES Troponin I < 0.02 ng/ml (0.00-0.05) 01/16/19 07:30 urrent Medications Generic Name Dose Route Start Last Admin Trade Name Silvia PRN Reason Stop Dose Admin Amlodipine Besylate 10 mg 01/19/19 10:22 01/20/19 10:29 Norvasc - PO 10 mg DAILY RAIN Administration Clonidine 0.1 mg 01/19/19 14:02 01/20/19 06:27 Catapres - PO 0.2 mg TID RAIN Administration Docusate Sodium 100 mg 01/16/19 12:45 01/20/19 10:29 Colace - PO 100 mg BID RAIN Administration Donepezil HCl 5 mg 01/18/19 10:00 01/20/19 06:27 Aricept - PO 5 mg AM RAIN Administration Glycerin 2 each 01/18/19 14:43 Glycerin Suppository Adult - RC DAILY PRN CONSTIPATION Heparin Sodium (Porcine) 5,000 unit 01/15/19 22:00 01/20/19 06:27 Heparin - SQ 5,000 unit TID RAIN Administration Lisinopril 40 mg 01/16/19 12:45 01/20/19 10:29 Prinivil PO 40 mg DAILY RAIN Administration Pantoprazole Sodium 40 mg 01/16/19 12:45 01/20/19 10:29 Protonix - PO 40 mg DAILY RAIN Administration Polyethylene Glycol 17 gm 01/16/19 22:00 01/20/19 10:29 Miralax (For Daily Use) - PO 17 gm BID RAIN Administration Home Medications Medication Instructions Recorded Amlodipine Besylate 10 mg PO DAILY 01/15/19 Clonidine HCl 0.1 mg PO TID 01/15/19 Docusate Sodium [Colace -] 100 mg PO BID 01/15/19 Donepezil HCl [Aricept -] 5 mg PO AM 01/15/19 Lisinopril [Prinivil -] 40 mg PO DAILY 01/15/19 Omeprazole 40 mg PO DAILY 01/15/19 CT scan of the abdomen/pelvis : dilated gallbladder and dilated intrahepatic bile ducts and nonobstructing left kidney stone of 8mm MRI of the abdomen: slight gallbladder overdistention , trace amount of adjacent free fluid is seen. CBD is 1.2cm in diameter, no evidence of choledocholithiasis, the main pancreatic duct is slightely dilated 3.4mm diameter. ASSESSMENT AND PLAN: Pt is an 88 year old male with pmhx of htn and dementia who presents to the ER with right sided abdominal pain/flank pain. # HTN controlled today :continue clonidine to 0.1mg tid, #Hydrophic Gallbladder on Ct of abdomen and pelvis measuring 8.5cm with Dilated CBD, MRCP as above , LFts normal , no further intervention is needed. # LEYDI over chronic 1.3-->1.4 stable # Acute over chronic constipation: On Miralx, colace #Hx of Dementia: on Aricept continue. dc patient home
== END 2019-01-20 20:20 | disposition home health service (06) | DRG 445 ==
LOC: JER 12:20 → JERBED 19:24 → J6S 01-16 02:09
PROVIDERS: ADMIT Internal Medicine; ATTEND Internal Medicine
DX: K82.1 Hydrops of gallbladder (principal); N17.9 Acute kidney failure, unspecified; K82.8 Other specified diseases of gallbladder; F03.90 Unspecified dementia, unspecified severity, without behavioral disturbance, psychotic disturbance, mood disturbance, and anxiety; D69.6 Thrombocytopenia, unspecified; D72.819 Decreased white blood cell count, unspecified; N20.0 Calculus of kidney; I12.9 Hypertensive chronic kidney disease with stage 1 through stage 4 chronic kidney disease, or unspecified chronic kidney disease; K59.00 Constipation, unspecified; K83.9 Disease of biliary tract, unspecified; K86.89 Other specified diseases of pancreas; N18.9 Chronic kidney disease, unspecified; K21.9 Gastro-esophageal reflux disease without esophagitis
CPT/HCPCS: 36415; 73590-TC-LT-FY; 74177-TC; 74181-TC; 76705-TC; 80053; 81003; 83605; 83690; 83735; 84100; 84484; 85025; 85027; 85610; 85730; 87086; 90670; 93005; 93010; 97116-GP; 97162-GP; 99284-25; G0008; G0009; J0735; J1644; J7030; Q2036; Q9967